=== PATIENT | female | born 1955 | race Caucasian/White ===

== ENCOUNTER 2022-10-05 10:02 | Emergency (ER) | payer MEDICARE, SELFPAY ==
--- NOTE | ~2022-10-05 | US_ITS ---
EXAMINATION: US venous doppler [facility] DATE: 10/05/2022 10:59 INDICATION: Left lower limb swelling and pain TECHNIQUE: Sun scale images without and with compression and Doppler images of the left lower extrem ity veins were obtained. COMPARISON: None FINDINGS: The left common femoral vein and profunda femoral vein are patent. There is thrombosis of t he femoral vein, popliteal vein, peroneal trunk, posterior tibial veins, and gastrocnemius vein. IMPRESSION: 1. Thrombosis of the left femoral vein, popliteal vein, peroneal trunk, posterior tibial veins, and g astrocnemius vein. These findings were discussed with Audrey Martin PA-C in the Emergency Department at 1102 hours on 10/05/2022. Reviewed, dictated and finalized at location L. IMPRESSION: 1. Thrombosis of the left femoral vein, popliteal vein, peroneal trunk, posteri or tibial veins, and gastrocnemius vein. These findings were discussed with Audrey Martin PA-C in the Emergency Depar tme at 1102 hours on 10/05/2022.
[2022-10-05 10:15] VITALS: BP 141/68; PULSE 61; RESP 17; TEMP 36.6; O2SAT 96
--- NOTE | 2022-10-05 10:35 | PC.NURSE ---
Pt to U/S via w/c at this time.
[2022-10-05 11:54] LABS: Basophils Absolute Auto 0.1 K/mm3 (0.0-0.1); Basophils Percent Auto 0.7 % (0.2-1.2); Eosinophils Absolute Auto 0.4 K/mm3 (0-0.3); Eosinophils Percent Auto 4.3 % (0-4.4); Hematocrit 40.6 % (37.0-47.0); Hemoglobin 13.8 g/dL (12.0-15.0); Immature Granulocyte Absolute 0.05 K/mm3 (0.00-0.031); Immature Granulocyte Percent A 0.6 % (0-0.5); Lymphocytes Absolute Auto 1.66 K/mm3 (0.9-3.2); Lymphocytes Percent Auto 19.4 % (18.3-44.2); Mean Corpuscular Hemoglobin 31.2 pg (26-34); Mean Corpuscular Volume 91.9 fl (80-100); Mean Platelet Volume 9.9 fl (7.4-10.4); Monocytes Absolute Auto 0.8 K/mm3 (0.1-0.6); Monocytes Percent Auto 9.2 % (2.6-8.5); Neutrophils Absolute Auto 5.6 K/mm3 (1.3-6.7); Neutrophils Percent Auto 65.8 % (45.5-73.1); Platelet Count Result 218 k/mm3 (150-375); Red Blood Count 4.42 M/mm3 (4.2-5.4); Red Cell Distribution Width 13.4 % (11.5-14.5); White Blood Count 8.6 K/mm3 (4.5-10.0)
[2022-10-05 12:10] LABS: Anion Gap 5 mmol/L (8-16); Blood Urea Nitrogen 22 mg/dL (7-17); Calcium 8.9 mg/dL (8.4-10.2); Carbon Dioxide 24 mmol/L (22-30); Chloride 110 mmol/L (98-107); Estimated CRCL calculation 59 ml/min; Estimated Glomerular Filt Rate > 60; Glucose 124 mg/dL (65-110); Potassium 3.8 mmol/L (3.4-5.0); Sodium 139 mmol/L (137-145)
--- NOTE | 2022-10-05 12:17 | ED.LOWEXIN ---
HPI - Extremity Injury (Lower) General Chief Complaint: Extremity Injury, Lower Stated Complaint: left leg swelling Time Seen by Provider: 10/05/22 11:05 Source: patient Mode of arrival: ambulatory Limitations: no limitations History of Present Illness HPI Narrative: This is a 67 year old female that presents to the ER for left calf pain and swelling noted over the last 2 days. No recent injuries or trauma. No recent surgeries. She was evaluated by her primary for this today and prompted to be seen in the ER for an ultrasound of her leg. Denies chest pain, shortness of breath, erythema, or numbness. Related Data Allergies Allergy/AdvReac Type Severity Reaction Status Date / Time Sulfa (Sulfonamide Allergy Hives Verified 10/05/22 11:19 Antibiotics) [facility] Past Medical History Medical History (Updated 10/05/22 @ 13:24 by Audrey Martin PA-C) History of hypertension Social History Social History (Updated 10/05/22 @ 13:24 by Audrey Martin PA-C) Smoking status: Never smoker Exam Narrative: GENERAL: Well-appearing, well-nourished, and in no acute distress. HEAD: Normocephalic, atraumatic. EYES: EOMI. CHEST: Clear to auscultation. No respiratory distress. No wheezes rales or rhonchi HEART: Regular rate and rhythm. No murmur heard. Normal peripheral pulses. EXTREMITIES: Normal range of motion. 1+ pitting edema to the left leg from below the knee into the ankle. Normal DP pulse. Normal sensation. No redness or warmth SKIN: Warm, dry, no rash. NEURO: No focal deficits. Alert and oriented x3. PSYCH: Normal mood and affect Course Course Emergency Course: Patient and family updated on work-up and agree with plan of care Consultations Consultation #1: Spoke with SAM Hickey, patient's primary provider about work-up. Agrees with plan of care. Will follow-up in clinic next week Date: 10/05/22 Vital Signs Vital signs: Vital Signs Temperature 97.8 F 10/05/22 10:15 Pulse Rate 61 10/05/22 10:15 Respiratory Rate 17 10/05/22 10:15 Blood Pressure 141/68 H 10/05/22 10:15 Pulse Oximetry 96 10/05/22 10:15 Oxygen Delivery Room Air 10/05/22 10:15 Temperature 97.8 F 10/05/22 10:15 Pulse Rate 61 10/05/22 10:15 Respiratory Rate 17 10/05/22 10:15 Blood Pressure 141/68 H 10/05/22 10:15 Pulse Oximetry 96 10/05/22 10:15 Oxygen Delivery Room Air 10/05/22 10:15 MDM - Extremity Injury (Lower) MDM Narrative Medical decision making narrative: Patient presents to the emergency department for left calf pain and swelling noted over the last 2 days. She is afebrile and nontoxic-appearing. Her heart rate and oxygen saturation are normal. She denies any chest pain or shortness of breath. She is neurovascularly intact. CBC and metabolic panel without concerning findings. Left lower extremity venous Doppler shows thrombosis of the left femoral vein, popliteal vein, peroneal trunk, posterior tibial vein, gastrocnemius vein. Patient was updated on work-up. Will be started on oral anticoagulation. Spoke with patient's primary about workup who agrees with plan and will follow up in clinic. She was given warnings to return to the ER Differential Diagnosis Differential diagnosis: Likely other (DVT, cellulitis) Lab Data Attestation: I reviewed the patient's lab results. 10/05/22 11:46 10/05/22 11:46 Labs: Lab Results 10/05/22 Range/Units 11:46 WBC 8.6 (4.5-10.0) K/mm3 RBC 4.42 (4.2-5.4) M/mm3 Hgb 13.8 (12.0-15.0) g/dL Hct 40.6 (37.0-47.0) % MCV 91.9 (80-100) fl MCH 31.2 (26-34) pg MCHC 34.0 (32-36) g/dl RDW 13.4 (11.5-14.5) % Plt Count 218 (150-375) k/mm3 MPV 9.9 (7.4-10.4) fl Immature Gran % (Auto) 0.6 H (0-0.5) % Neut % (Auto) 65.8 (45.5-73.1) % Lymph % (Auto) 19.4 (18.3-44.2) % Ross % (Auto) 9.2 H (2.6-8.5) % Eos % (Auto) 4.3 (0-4.4) % Baso % (Auto) 0.7 (0.2-1.2) % Lymph # (Auto) 1.66 (0.9-3.
== END 2022-10-05 12:33 | disposition home or self-care (01) ==
PROVIDERS: Emergency Provider Physician Assistant
DX: I82.402 Acute embolism and thrombosis of unspecified deep veins of left lower extremity (principal); I10 Essential (primary) hypertension
CPT/HCPCS: 36415; 80048; 85025; 93971; 99284

== ENCOUNTER 2023-01-24 15:09 | Outpatient (CLI) | payer MEDICARE, SELFPAY ==
--- NOTE | ~2023-01-24 | US_ITS ---
EXAMINATION:US venous doppler LE LT INDICATION:Deep venous thrombosis TECHNIQUE: Multiple grayscale, color flow and Doppler images of the left lower extremity deep venous systems were obtained and reviewed. COMPARISON:10/05/2022 FINDINGS: The left femoral and popliteal veins contain chronic partially occlusive deep venous thromb osis. Color flow is also seen within the posterior tibial, peroneal, greater saphenous and profunda v eins. IMPRESSION: 1: Chronic partially occlusive deep venous thrombosis of the left femoral and popliteal veins. Reviewed, dictated and finalized at location B. IMPRESSION: 1: Chronic partially occlusive deep venous thrombosis of the left femoral and p opliteal veins.
== END 2023-01-24 15:10 | disposition home or self-care (01) ==
LOC: ANHIMG 15:14
PROVIDERS: PCP Physician Assistant; Visit Provider Physician Assistant
DX: I82.512 Chronic embolism and thrombosis of left femoral vein (principal); I82.532 Chronic embolism and thrombosis of left popliteal vein
CPT/HCPCS: 93971

== ENCOUNTER → 2023-05-23 13:20 | Outpatient (CLI) | payer MEDICARE, SELFPAY ==
--- NOTE | ~2023-05-23 | MR_ITS ---
EXAMINATION: MR lumbar spine wo con DATE: 05/23/2023 14:55 INDICATION: Low back pain, unspecified. TECHNIQUE: Magnetic resonance imaging (MRI) of the lumbar spine was performed without intravenous con trast. Sequences included sagittal T2-weighted FSE, sagittal T2-weighted FS FSE, sagittal T1-weighted FSE, and axial T2-weighted FSE. COMPARISON: None FINDINGS: There is 4 degrees levocurvature of lumbar spine. There is 3 mm anterolisthesis of L3 on L4 and L4 on L5. There are changes of posterior fusion procedure from L3 to L5 with pedicle screws. The re are changes of anterior fusion procedure at L3-L4 and L4-L5 with interbody devices. There is mild chronic height loss of T10 vertebral body. There is severely decreased disc height at L2-L3 and mildl y decreased disc height at L5-S1. The distal spinal cord signal intensity is normal. The conus medull rusty is at L1. The following disc levels are specifically discussed: L1-L2: There is a central protrusion. There is moderate right and severe left facet joint osteoarthri tis. There is mild bilateral neural foraminal stenosis. There is mild central canal stenosis. L2-L3: The disc is bulging. There is severe bilateral facet joint osteoarthritis. There is moderate b ilateral neural foraminal stenosis. There is moderate central canal stenosis. L3-L4: There is ankylosis of the facet joints with severe right and moderate left hypertrophy. There is mild bilateral neural foraminal stenosis. There is mild central canal stenosis. L4-L5: There is severe bilateral facet joint osteoarthritis. There is moderate right and mild left ne ural foraminal stenosis. There is mild central canal stenosis. There is severe stenosis of right late ral recess. L5-S1: The disc is bulging and has an annular fissure. There is moderate right and severe left facet joint osteoarthritis. There is moderate bilateral neural foraminal stenosis. There is moderate centra l canal stenosis. There is severe stenosis of left lateral recess. IMPRESSION: 1. Severe lumbar spondylosis. 2. Anterior and posterior fusion procedures from L3 to L5. Reviewed, dictated and finalized at location A. ING IN MACHINE TENDER
--- NOTE | ~2023-05-23 | MR_ITS ---
EXAMINATION: MR cervical spine wo con DATE: 05/23/2023 14:46 INDICATION: Tingling in the arms and hands. Spinal stenosis. Bilateral leg tingling. TECHNIQUE: Magnetic resonance imaging (MRI) of the cervical spine was performed without intravenous c ontrast. COMPARISON: None FINDINGS: There is 6 degrees cervicothoracic spine. Vertebral body heights are normal. There is mildl y decreased disc height at C6-C7. The spinal cord signal intensity is normal. The following disc leve ls are specifically discussed: C2-C3: The disc does not extend beyond the endplate margin. There is no uncovertebral joint osteoarth ritis. There is mild bilateral facet joint osteoarthritis. There is no neural foraminal stenosis. The re is no central canal stenosis. C3-C4: There is a central protrusion. There is no uncovertebral joint osteoarthritis. There is modera te bilateral facet joint osteoarthritis. There is mild right neural foraminal stenosis. There is mild central canal stenosis. C4-C5: The disc is bulging. There is no uncovertebral joint osteoarthritis. There is severe right and mild left facet joint osteoarthritis. There is mild right neural foraminal stenosis. There is no jagruti tral canal stenosis. C5-C6: The disc does not extend beyond the endplate margin. There is mild left uncovertebral joint os teoarthritis. There is moderate right and mild left facet joint osteoarthritis. There is mild bilater al neural foraminal stenosis. There is no central canal stenosis. C6-C7: The disc is bulging. There is moderate bilateral uncovertebral joint osteoarthritis. There is moderate right and mild left facet joint osteoarthritis. There is moderate bilateral neural foraminal stenosis. There is moderate central canal stenosis with ventral and dorsal indentation of the spinal cord. C7-T1: There is a central extrusion. There is no uncovertebral joint osteoarthritis. There is severe bilateral facet joint osteoarthritis. There is mild right neural foraminal stenosis. There is mild ce ntral canal stenosis. IMPRESSION: 1. Moderate cervical spondylosis. Reviewed, dictated and finalized at location A. DIPPER
== END ==
PROVIDERS: PCP Physician Assistant; Visit Provider Neurological Surgery
DX: M48.062 Spinal stenosis, lumbar region with neurogenic claudication (principal); M47.892 Other spondylosis, cervical region; M47.896 Other spondylosis, lumbar region; Z98.1 Arthrodesis status
CPT/HCPCS: 72141; 72148

== ENCOUNTER 2023-10-20 23:27 | Emergency (ER) | payer MEDICARE, SELFPAY ==
--- NOTE | ~2023-10-20 | XR_ITS ---
EXAMINATION: XR chest 1V portable DATE: 10/21/2023 00:18 INDICATION: Weakness. TECHNIQUE: A single frontal view of the chest was obtained. COMPARISON: None. FINDINGS: There is no pneumonia, pleural effusion, or pneumothorax. The heart size is normal. There i s a large hiatal hernia. IMPRESSION: 1. Large hiatal hernia. Reviewed, dictated and finalized at location E. IMPRESSION: 1. Large hiatal hernia.
[2023-10-20 23:33] VITALS: BP 174/80; PULSE 61; RESP 20; TEMP 36.9; O2SAT 99
--- NOTE | 2023-10-20 23:40 | ECG_ITS ---
Test Date: 2023-10-20 23:42:28 Measurements Intervals [place] Rate: 64 P: 9 NC: 159 QRS: -3 QRSD: 90 T: -3 QT: 380 QTc: 393 Interpretive Statements SINUS RHYTHM INFERIOR MYOCARDIAL INFARCTION , PROBABLY OLD BASELINE ARTIFACT- I, II, III, AVR, AVL, AVF, V2 ABNORMAL ECG No previous ECG available for comparison Electronically Signed On 10-21-2023 07:52:40 CDT by Bj Welsh D.O.
--- NOTE | 2023-10-20 23:58 | ED.WEAKNESS ---
HPI - Weakness General Chief complaint: Back Pain/Injury Stated complaint: dehydration, back pain, Left leg pain Time Seen by Provider: 10/20/23 23:47 Source: patient Mode of arrival: ambulatory Limitations: no limitations History of Present Illness HPI Narrative: Patient presents with complaint of back pain and left leg pain. She had surgery with Dr Russell at [facility] recently and has been having weakness and fatigue as well as generalized body aches. She states that her skin feels rubbery. Applying ice helps. She is Jasper 5 mg tablets but not on a prescribed a stool softener though she was while she was in the hospital. Her last bowel movement was Sunday she is feeling bloated/constipated although still passing flatus.. Related Data Home Medications Medication Instructions Recorded Confirmed atenolol 50 mg tablet 50 mg PO DAILY 01/15/23 furosemide 20 mg tablet 20 mg PO QAM 01/15/23 ibuprofen 200 mg capsule 200 mg PO Q6H PRN 01/15/23 omega-3 fatty acids 1,250 mg 1,250 mg PO DAILY 01/15/23 capsule potassium chloride 10 mEq oral 10 meq PO DAILY 01/15/23 packet aspirin 81 mg tablet,delayed 81 mg PO DAILY 05/08/23 release (Adult Low Dose Aspirin) verapamil 120 mg tablet 120 mg PO TID 05/08/23 Allergies Allergy/AdvReac Type Severity Reaction Status Date / Time Sulfa (Sulfonamide Allergy Hives Verified 07/03/23 15:25 Antibiotics) [facility] Past Medical History Medical History (Updated 10/22/23 @ 00:00 by Vangie Howe) History of hypertension Surgical History Surgical History History of right knee joint replacement 2020 S/P lumbar fusion Social History Social History Smoking status: Never smoker Alcohol intake: current Substance use: never Substance use type: does not use Do You Feel Safe in your Home?: Yes Lack of Transportation: No Lack of Food: Never True Current Housing: I Have Housing Concerned About Future Housing: No Difficulty Paying Gas/Electric Bills: No Difficulty Paying for Meds: No Currently Unemployed: No Education: High School Diploma/GED Difficulty w/ Childcare or Family Care: No Living arrangements: with family Occupation/Education: retired Exam Narrative: GENERAL: Well-appearing, well-nourished, and in no acute distress. HEAD: Normocephalic, atraumatic. EYES: Non injected, non icteric ENT: Nares clear, no rhinorrhea or epistaxis. NECK: Supple. CHEST: Speaking in full sentences. No respiratory distress. HEART: Regular rate and rhythm. Lower extremities are warm and well perfused. ABDOMEN/GI: Soft, nondistended. Rectal exam performed with Eunice rivera and RN present. Patient has nonthrombosed external hemorrhoids without active bleeding. Normal rectal tone. Guiac/FOBT negative. BACK/EXTREMITIES: No bilateral lower extremity edema. Well-healing surgical scar/incision site which is without evangelina at this time. No overlying skin changes such as cellulitis and without induration or purulent discharge. Patient is able to demonstrate flexion extension as well as [id number] movement. SKIN: Warm, dry, no rash. NEURO: No focal deficits. Alert and oriented x3. Sensation intact to gross touch in extremities. Observed ambulating a few steps with steady gait at bedside. 5/5 strength with hip flexion, abduction adduction as well as bilateral knee flexion extension bilateral ankle dorsiflexion plantar flexion. PSYCH: Normal mood and affect. Course Vital Signs Vital signs: Vital Signs Temperature 98.4 F 10/20/23 23:33 Pulse Rate 61 10/20/23 23:33 Respiratory Rate 20 10/20/23 23:33 Blood Pressure 174/80 H 10/20/23 23:33 Pulse Oximetry 99 10/20/23 23:33 Oxygen Delivery Room Air 10/20/23 23:33 Temperature 98.4 F 10/20/23 23:33 Pulse Rate 65 10/21/23 03:54 Respiratory R
[2023-10-21 00:06] LABS: Basophils Percent Auto 0.2 % (0.2-1.2); Eosinophils Absolute Auto 0.4 K/mm3 (0-0.3); Eosinophils Percent Auto 3.9 % (0-4.4); Hematocrit 27.9 % (37.0-47.0); Hemoglobin 9.4 g/dL (12.0-15.0); Immature Granulocyte Absolute 0.17 K/mm3 (0.00-0.031); Immature Granulocyte Percent A 1.9 % (0-0.5); Lymphocytes Absolute Auto 2.01 K/mm3 (0.9-3.2); Lymphocytes Percent Auto 22.1 % (18.3-44.2); Mean Corpuscular HGB Conc 33.7 g/dl (32-36); Mean Corpuscular Hemoglobin 31.6 pg (26-34); Mean Corpuscular Volume 93.9 fl (80-100); Mean Platelet Volume 10.1 fl (7.4-10.4); Monocytes Absolute Auto 0.9 K/mm3 (0.1-0.6); Neutrophils Absolute Auto 5.6 K/mm3 (1.3-6.7); Neutrophils Percent Auto 61.9 % (45.5-73.1); Nucleated Red Blood Cells Perc 0.2 % (0.0-0.2); Platelet Count Result 245 k/mm3 (150-375); Red Blood Count 2.97 M/mm3 (4.2-5.4); Red Cell Distribution Width 14.1 % (11.5-14.5); White Blood Count 9.1 K/mm3 (4.5-10.0)
[2023-10-21 00:13] LABS: Alanine Aminotransferase 33 U/L (6-35); Albumin Level 3.6 g/dL (3.5-5.1); Alkaline Phosphatase 98 U/L (38-126); Anion Gap 8 mmol/L (4-12); Aspartate Amino Transferase 30 U/L (14-36); Bilirubin,Total 0.5 mg/dL (0.2-1.3); Blood Urea Nitrogen 25 mg/dL (7-17); Calcium 8.7 mg/dL (8.4-10.2); Carbon Dioxide 26 mmol/L (22-30); Chloride 104 mmol/L (98-107); Estimated CRCL calculation 51 ml/min; Estimated Glomerular Filt Rate 55; Glucose 112 mg/dL (65-110); Potassium 3.4 mmol/L (3.4-5.0); Sodium 138 mmol/L (137-145)
[2023-10-21] MEDS: HYDROcodone/acetaminophen (*CRX) 10-325 MG TABLET 1 TAB PO (00:31)
[2023-10-21 00:42] LABS: Creatine Kinase 109 U/L (30-135); Magnesium 1.9 mg/dL (1.6-2.3)
[2023-10-21] MEDS: polyethylene glycoL 3350 17 GM POWD.PACK PO (00:54)
[2023-10-21 01:12] LABS: Appearance Urine Clear (Clear); Bilirubin Urine Negative (Negative); Blood Urine Negative (Negative); Color Urine Yellow (Yellow); Glucose Urine UA Negative (Negative); Ketones Urine Negative (Negative); Leukocyte Esterase Ur Negative LEU/UL (Negative); Nitrate Urine Negative (Negative); Protein Urine Negative (Negative); Specific Grav Ur 1.018 (1.001-1.035); pH Urine 5.5 (5.0-9.0)
[2023-10-21 01:15] LABS: Add Urine Microscopic? NO
[2023-10-21 01:16] LABS: Influenza A QL RT-PCR Negative (Negative); Influenza B QL RT-PCR Negative (Negative); RSV RNA, RT-PCR Negative (Negative); SARS-CoV-2 RNA PCR Negative (Negative)
[2023-10-21 01:22] LABS: NT Pro B Type Natriuretic Pept 1020 pg/mL (19.9-100)
[2023-10-21] MEDS: SENNOSIDES 8.6 MG TABLET PO (03:46)
[2023-10-21 03:54] VITALS: BP 166/98; PULSE 65; RESP 17; O2SAT 100
== END 2023-10-21 03:55 | disposition home or self-care (01) ==
PROVIDERS: Emergency Provider Student in an Organized Health Care Education/Training Program
DX: G89.18 Other acute postprocedural pain (principal); M54.32 Sciatica, left side; D64.9 Anemia, unspecified; K59.00 Constipation, unspecified; Z20.822 Contact with and (suspected) exposure to COVID-19; I10 Essential (primary) hypertension; Z98.1 Arthrodesis status; Z96.651 Presence of right artificial knee joint; Z79.82 Long term (current) use of aspirin; Z79.899 Other long term (current) drug therapy; Z79.891 Long term (current) use of opiate analgesic
CPT/HCPCS: 36415; 71045; 80053; 81003; 82550; 83735; 83880; 85025; 87637; 93005; 99283; A9270

== ENCOUNTER 2023-11-01 12:51 | Outpatient (CLI) | payer MEDICARE, SELFPAY ==
--- NOTE | ~2023-11-01 | CT_ITS ---
EXAMINATION: CT lumbar spine wo con DATE: 11/01/2023 13:16 INDICATION: Low back pain. Left leg pain. TECHNIQUE: Computed tomography (CT) of the lumbar spine was performed without intravenous contrast. A utomated exposure control and iterative reconstruction technique were employed. The dose-length produ ct was 982.10 mGy-cm. COMPARISON: Lumbar spine MRI 05/23/2023 FINDINGS: There is 3 mm anterolisthesis of L3 on L4 and L4 on L5. There is mild chronic anterior wedg ing of T12 vertebral body. There are changes of anterior fusion procedures from L2-L3 through L5-S1 w ith interbody devices. There are changes of posterior fusion procedure from L2 to S1 and the iliac shahrzad james. The pedicle screw on the right at L5 has been removed. There are laminectomies at L2 and L5. The re is mildly decreased disc height at T11-T12. The following disc levels are specifically discussed: L1-L2: The disc is bulging. There is severe lateral facet joint osteoarthritis. There is mild bilater al neural foraminal stenosis. There is mild central canal stenosis. L2-L3: There is no facet joint hypertrophy. There is mild bilateral neural foraminal stenosis. There is no central canal stenosis. L3-L4: There is mild bilateral facet joint hypertrophy. There is mild right neural foraminal stenosis . There is mild central canal stenosis. L4-L5: There is moderate bilateral facet joint hypertrophy. There is mild bilateral neural foraminal stenosis. There is mild central canal stenosis. L5-S1: There is mild left facet joint hypertrophy. There is mild left neural foraminal stenosis. Ther e is no central canal stenosis. IMPRESSION: 1. Anterior fusion procedures from L2 to S1. Posterior fusion procedure from L2 to the sacrum and heidy ac bones. 2. Mild lumbar spondylosis. Reviewed, dictated and finalized at location A. IMPRESSION: 1. Anterior fusion procedures from L2 to S1. Posterior fusion procedure from L2 to the sacrum and iliac bones. 2. Mild lumbar spondylosis.
--- NOTE | ~2023-11-01 | XR_ITS ---
Lumbosacral Spine: AP and lateral views Clinical History: Pain Findings: The normal lordotic curve is maintained. There is posterior and interbody fusion extending from L2 through the sacrum. No acute fracture seen. There is underlying 6 mm anterolisthesis of L3 ov er L4. Probable 3-4 mm anterolisthesis of L4 over L5. The sacroiliac joints are normally outlined. Impression: Posterior and interbody fusion from L2 through the sacrum. 6 mm underlying anterolisthesis of L3 over L4. Probable 3-4 mm underlying anterolisthesis of L4 over L5. Reviewed, dictated and finalized at location . Impression: Posterior and interbody fusion from L2 through the sacrum. 6 mm underlying anterolisthesis of L3 over L4. Probable 3-4 mm underlying anterolisthesis of L4 over L5.
== END 2023-11-01 12:52 | disposition home or self-care (01) ==
PROVIDERS: PCP Physician Assistant; Visit Provider Neurological Surgery
DX: M48.062 Spinal stenosis, lumbar region with neurogenic claudication (principal); M48.07 Spinal stenosis, lumbosacral region; M47.816 Spondylosis without myelopathy or radiculopathy, lumbar region; Z98.1 Arthrodesis status
CPT/HCPCS: 72100; 72131

== ENCOUNTER 2024-02-25 12:58 | Outpatient (CLI) | payer MEDICARE, SELFPAY ==
[2024-02-25 13:58] LABS: Hematocrit 38.5 % (37.0-47.0); Hemoglobin 12.1 g/dL (12.0-15.0); Mean Corpuscular HGB Conc 31.4 g/dl (32-36); Mean Corpuscular Hemoglobin 26.2 pg (26-34); Mean Corpuscular Volume 83.5 fl (80-100); Mean Platelet Volume 9.6 fl (7.4-10.4); Platelet Count Result 315 k/mm3 (150-375); Red Blood Count 4.61 M/mm3 (4.2-5.4); Red Cell Distribution Width 15.5 % (11.5-14.5); White Blood Count 7.2 K/mm3 (4.5-10.0)
[2024-02-25 14:04] LABS: Add Urine Microscopic? NO; Appearance Urine Clear (Clear); Bilirubin Urine Negative (Negative); Blood Urine Negative (Negative); Color Urine Yellow (Yellow); Glucose Urine UA Negative (Negative); Ketones Urine Negative (Negative); Leukocyte Esterase Ur Negative LEU/UL (Negative); Nitrate Urine Negative (Negative); Protein Urine Negative (Negative); Specific Grav Ur 1.022 (1.001-1.035); Urobilinogen Urine 0.2 mg/dL (<2.0)
[2024-02-25 14:18] LABS: Anion Gap 7 mmol/L (4-12); Blood Urea Nitrogen 23 mg/dL (7-17); Carbon Dioxide 24 mmol/L (22-30); Chloride 110 mmol/L (98-107); Estimated Glomerular Filt Rate 49; Glucose 109 mg/dL (65-110); Potassium 3.7 mmol/L (3.4-5.0); Sodium 141 mmol/L (137-145)
[2024-02-25 14:35] LABS: INR 1.1; Prothrombin Time 14.3 Seconds (11.1-14.7)
== END 2024-02-25 12:59 | disposition home or self-care (01) ==
LOC: ANHSURGERY 13:02
PROVIDERS: PCP Nurse Practitioner Adult Health; Visit Provider Neurological Surgery
DX: Z01.818 Encounter for other preprocedural examination (principal); D68.9 Coagulation defect, unspecified; M50.20 Other cervical disc displacement, unspecified cervical region
CPT/HCPCS: 36415; 80048; 81003; 85027; 85610; 85730; 86850; 86900; 86901

== ENCOUNTER 2024-02-28 11:00 | Outpatient (CLI) | payer MEDICARE, SELFPAY ==
--- NOTE | ~2024-02-28 | US_ITS ---
EXAMINATION:US venous doppler LE LT INDICATION:History of DVT. Patient on blood thinners. Edema. TECHNIQUE: Multiple grayscale, color flow and Doppler images of the left lower extremity deep venous systems were obtained and reviewed. COMPARISON:Ultrasound dated 01/24/2023 FINDINGS: The common femoral, superficial femoral and popliteal veins demonstrate normal respiratory variation, augmentation and compressibility. Color flow is also seen within the posterior tibial, pe roneal, greater saphenous and profunda veins. IMPRESSION: 1: No lower extremity deep venous thrombosis. Reviewed, dictated and finalized at location B. OGRAPHIC SPECIALIST
== END 2024-02-28 11:01 | disposition home or self-care (01) ==
PROVIDERS: PCP Nurse Practitioner Adult Health; Visit Provider Internal Medicine Cardiovascular Disease
DX: R60.0 Localized edema (principal)
CPT/HCPCS: 93971

== ENCOUNTER 2024-02-29 14:42 | Outpatient (CLI) | payer MEDICARE, SELFPAY ==
--- NOTE | 2024-02-29 15:05 | ECHO_ITS ---
Patient Info Name: Kala Duron Age: 68 years : 1955 Gender: Female Ht: 64 in Wt: 212 lbs BSA: 2.13 m2 HR: 66 bpm BP: 132 / 74 mmHg Technical Quality: Good Exam Date: 02/29/2024 3:13 PM Exam Location: Echo Lab Patient Status: Outpatient Admit Date: 02/29/2024 Staff Ordering Physician: Bj Welsh DO Attending Provider: Bj Welsh DO Referring Physician: Blaise SOSA; Exam Type: CA echo doppler color flow Study Info Complete two-dimensional, color flow and Doppler transthoracic echocardiogram is performed. Summary 1. Complete two-dimensional, color flow and Doppler transthoracic echocardiogram is performed. 2. Left ventricular chamber dimension is moderately enlarged. 3. Left ventricular systolic function is normal, estimated at 60-65%. 4. Ventricular septum is sigmoid shaped. No resting LVOT obstruction. 5. The left ventricular diastolic function is grade I diastolic dysfunction. 6. E/e' 15 is elevated. 7. Left atrial chamber dimension is mildly enlarged. 8. There is trace aortic valve regurgitation. 9. There is mild mitral valve regurgitation. 10. There is trace tricuspid valve regurgitation. 11. No pulmonary hypertension, estimated pulmonary arterial systolic pressure is 29 mmHg. 12. There is trace pulmonic regurgitation. Left Ventricle Ventricular septum is sigmoid shaped. No resting LVOT obstruction. Left ventricular chamber dimension is moderately enlarged. Left ventricular systolic function is normal, estimated at 60-65%. The left ventricular diastolic function is grade I diastolic dysfunction. E/e' 15 is elevated. Right Ventricle Right ventricular systolic function is normal and with normal TAPSE 2.5 cm. Right ventricular chamber dimension is normal. Left Atria Left atrial chamber dimension is mildly enlarged. Right Atria Right atrial chamber dimension is normal. Aortic Valve The aortic valve is trileaflet. There is no aortic valve stenosis. There is trace aortic valve regurgitation. Pulmonic Valve There is trace pulmonic regurgitation. Mitral Valve There is no mitral valve stenosis. There is mild mitral valve regurgitation. Tricuspid Valve There is trace tricuspid valve regurgitation. No pulmonary hypertension, estimated pulmonary arterial systolic pressure is 29 mmHg. Pericardium/Pleural There is no pericardial effusion. Inferior Vena Cava Normal inferior vena cava with >50% collapse upon inspiration consistent with normal right atrial pressure, 5 mmHg. Aorta The aortic root size at the sinus of Valsalva is normal. Left Ventricular Outflow Tract Name Value Normal LVOT 2D LVOT Diameter 2.0 cm LVOT Doppler LVOT Peak Gradient 4 mmHg LVOT Mean Gradient 2 mmHg LVOT VTI 26 cm LVOT VTI/AV VTI Ratio 0.6 LVOT Stroke Volume 80 ml LVOT CO 11.4 l/min LVOT CI 5.4 l/min/m2 Pulmonic Valve Name Value Normal PV Doppler PV Peak Gradient 2 mmHg PV Regurgitation Doppler WA Peak End Diastolic Velocity 77 cm/s Mitral Valve Name Value Normal MV Doppler MV Decel [place] 358 cm/s2 MV PHT 68 ms MV Area (PHT) 3.2 cm2 4.0-5.0 MV Regurgitation Doppler MR Peak Gradient 124 mmHg MV Diastolic Function MV E Peak Velocity 84 cm/s MV A Peak Velocity 96 cm/s MV E/A 0.9 MV Decel Time 234 ms MV Annular TDI MV E/e' (Septal) 16.9 <=8.0 MV E/e' (Lateral) 14.5 <=8.0 MV E/e' (Average) 15.7 Tricuspid Valve Name Value Normal TV Regurgitation Doppler TR Peak Velocity 242 cm/s TR Peak Gradient 24 mmHg Estimated PAP/RSVP RA Pressure 5 mmHg <=5 PA Systolic Pressure 29 mmHg <36 RV Systolic Pressure 29 mmHg <36 Aorta Name Value Normal Ascending Aorta Ao Root Diameter (MM) 2.8 cm Ao Root Diam Index (MM) 1.3 cm/m2 Aortic Valve Name Value Normal AV Doppler AV Peak Velocity 164 cm/s AV Peak Gradient 11 mmHg AV Mean Gradient 5 mmHg AV VTI 42 cm AV Area (Cont Eq VTI) 1.9 cm2 >=3.0 AV Area (Cont Eq Adis) 1.8 cm2 AV Regurgitation 2D LVOT Area 3.0 cm2 AV Regurgitation Doppler AR Decel Time 1,224 ms AR Decel [place] 280 cm/s2 AR PHT 355 ms Ventricles Name Value Normal LV Dimensions 2D/MM IVS Diastolic Thickness (2D) 0.7 cm 0.6-1.0 LVID Diastole (2D) 5.8 cm 3.8-5.2 LVIW Diastolic Thickness (2D) 0.8 cm 0.6-0.9 LVID Systole (2D) 3.9 cm 2.2-3.5 LVOT Diameter 2.0 cm LV Mass (2D Cubed) 168.46 g 67.00-162.00 LV Mass Index (2D Cubed) 79 g/m2 43-95 Relative Wall Thickness (2D) 0.28 LV Fractional Shortening/Ejection Fraction 2D/MM LV Fractional Shortening (2D) 33 % 27-45 LV EF (2D Teicholz) 61 % 54-74 LV Diastolic Volume (4C MOD) 155 ml LV EF (4C MOD) 65 % LV Diastolic Volume (2C MOD) 141 ml LV EF (2C MOD) 61 % LV Diastolic Volume (BP MOD) 149 ml 46-106 LV Diastolic Volume Index (BP MOD) 70 ml/m2 29-61 LV Systolic Volume (BP MOD) 55 ml 14-42 LV Systolic Volume Index (BP MOD) 26 ml/m2 8-24 LV EF (BP MOD) 63 % 54-74 LV Diastolic Length (4C) 8.4 cm LV Systolic Length (4C) 6.8 cm LV Stroke Volume (4C MOD) 100 ml Atria Name Value Normal LA Dimensions LA Dimension (2D) 4.1 cm 2.7-3.8 LA Dimen Index (2D) 1.9 cm/m2 LA Dimension (MM) 4.7 cm 2.7-3.8 LA Volume (4C A-L) 83 ml LA Volume (BP A-L) 72 ml RA Dimensions RA Area (4C) 15.3 cm2 <=18.0 Report Signatures
== END 2024-02-29 14:43 | disposition home or self-care (01) ==
PROVIDERS: PCP Nurse Practitioner Adult Health; Visit Provider Internal Medicine Cardiovascular Disease
DX: R60.0 Localized edema (principal)
CPT/HCPCS: 93306

== ENCOUNTER 2024-03-04 00:36 | Day surgery (SDC) | payer MEDICARE, MEDICAID, SELFPAY ==
[2024-02-19 13:43] VITALS: BMI 36.7
--- NOTE | 2024-02-19 14:32 | PC.NURSE ---
Report to the Outpatient Waiting Room, entrance under the green pavilion located off [facility], at time ___10:00AM____ on date ___03/04/24____. Planned Procedure Time: __12:00PM .? Time changes happen often and if your time is changed the preop area will call you the afternoon before. - You and your visitor will be asked to self-screen and do not enter if you have any COVID symptoms. Please call surgeon if you need to reschedule. - A mask is optional within the hospital at this time. Patients may have clear liquids (water, carbonated beverages, clear teas, apple juice) until 3 hours prior to surgery with a maximum of 20 ounces. - No food from midnight until time of surgery and no smoking. This includes no chewing gum, candy or mints. Take only the following medications with a SIP of water on the morning of surgery: ____ATENOLOL, VERAPAMIL DO NOT STOP ANY OF YOUR OTHER PRESCRIPTION MEDICATIONS PRIOR TO SURGERY EXCEPT THE FOLLOWING Medications to discontinue per physician ___HOLD ASPIRIN, IBUPROFEN & VITAMINS/SUPPLEMENTS 7 DAYS PRE-OP PER DR CASTILLO (PER PATIENT) Date to take last dose 02/25/24 Please no make-up, nail welsh, hairspray, perfume, deodorant, or body powder the day of surgery.? No jewelry (including any body piercings) or valuables the day of surgery, leave them at home.? Please take a shower or bath the night before, or the morning of, surgery with an antibacterial soap.? Wear comfortable, loose fitting clothing.? - Jewelry must be removed prior to entering the operating room.? Rings and piercings that are not removed may be cut off. - The hospital will not accept responsibility for valuables.? - Please leave all valuables, including medications, at home the day of surgery. If you are going home after surgery, a licensed parcel post truck driver must drive you home.? - NO public transportation without another adult if you receive anesthesia. - We recommend that an adult stay with you for 24 hours following discharge. - We also recommend that you do not drive, make important decision, drink alcoholic beverages, or take any drugs that were not prescribed by your health care provider for at least 24 hours after your discharge time. Follow any additional instructions given to you from your surgeon. Telephone instructions given to ____PATIENT and asked if any additional questions and then verbalized understanding. Patient advised to call surgeon office or pre surgery nurse liaison [phone] if any additional questions.
[2024-03-04] VITALS (10 sets, daily range): BP systolic 125–167; BP diastolic 64–83; PULSE 51–59; RESP 13–151; TEMP 36.2–36.3; O2SAT 93–98
--- NOTE | ~2024-03-04 | XR_ITS ---
EXAMINATION: XR fluoroscopy no charge DATE: 03/04/2024 09:27 INDICATION: C6-C7 anterior cervical discectomy with fusion TECHNIQUE: 11 fluoroscopic images of the neck were obtained in lateral projection during procedure pe rformed by Dr. Delvalle. Radiologist was not present for the imaging or procedure. The amount of fluo roscopy time used during this procedure was 0.1 minutes. Total DAP was 0.252 Gycm^2 COMPARISON: None. FINDINGS: Images demonstrate tissue retractors at the anterior neck and a metallic probe extending deeper with the distal tip initially project over the anterior disc space at the C4-C5 level and subsequently rep ositioned to the anterior C6-C7 disc space which is poorly visualized due to underpenetration. An end otracheal tube is seen within expected position. Poorly visualized on the final images and anterior p late and screw fixation for anterior spinal fusion spanning the C6-C7 disc space. IMPRESSION: 1. Fluoroscopy utilized during reported C6-C7 discectomy and anterior spinal fusion with anterior torsten te and screw fixation. See procedure note for further detail. Reviewed, dictated and finalized at location A. NO FLOOR SUPERVISOR IMPRESSION: 1. Fluoroscopy utilized during reported C6-C7 discectomy and anterior spinal fu treva with anterior plate and screw fixation. See procedure note for further det ail.
[2024-03-04] MEDS: LACTATED RINGERS 1,000 ML 30 ML IV CONT ×2 (06:30→09:48)
--- NOTE | 2024-03-04 07:20 | P.PNAN_ITS ---
Anes - Initial Pre Proc Eval Procedure: Operation Date: 03/04/24 07:30 Proposed Procedures p C6-7, Anterior Cervical Discectomy with Fusion - Ac Delvalle MD Date/Time: 03/04/24 07:20 Surgeon: Ac Delvalle MD Pre Op Diagnosis: herniated nucleus pulposus, stenosis, Patient Data Age: 68 Gender: F Height: 1.63 m Weight: 97 kg Allergies Allergy/AdvReac Type Severity Reaction Status Date / Time [id number] Reductase Allergy rash, Verified 02/28/24 09:42 Inhibitor muscle pain Sulfa (Sulfonamide Allergy Hives Verified 02/28/24 09:42 Antibiotics) tolterodine (From Detrol) Allergy Chest Pain Verified 02/28/24 09:42 Home Medications ?Medication ?Instructions ?Recorded ?Confirmed ?Type atenolol 50 mg tablet 50 mg PO QAM 01/15/23 02/28/24 History ibuprofen 200 mg capsule 400 mg PO Q6H PRN Pain 01/15/23 02/28/24 History omega-3 fatty acids 1,250 mg 1,250 mg PO BID 01/15/23 02/28/24 History capsule aspirin 81 mg tablet,delayed 81 mg PO DAILY 05/08/23 02/28/24 History release (Adult Low Dose Aspirin) verapamil 120 mg tablet 120 mg PO DIRECTED 05/08/23 02/28/24 History sennosides 8.6 mg tablet 8.6 mg PO DAILY PRN constipation 10/21/23 02/28/24 Rx #7 tabs cholecalciferol (vitamin D3) 25 25 mcg PO DAILY 01/31/24 02/28/24 History mcg (1,000 unit) capsule (Vitamin D3) ropinirole 0.5 mg tablet 0.5 mg PO HS 02/19/24 02/28/24 History Patient hx anesthesia problems: none Family hx anesthesia problems: none Results Review: All pre-operative results and documents have been reviewed as part of the pre-operative evaluation. [facility] Past Medical History Medical History History of hypertension Surgical History Surgical History History of right knee joint replacement 2020 S/P lumbar fusion Social History Social History Smoking packs per day: 0.02 Smoking cigarettes per day: 0.4 Years smoked: 2 Smoking pack-years: 0.04 Smoking status: Former smoker Tobacco type: cigarettes Smoking end date: 09/23/85 Alcohol intake: current Drinks per week: 4 Substance use: never Substance use type: does not use Do You Feel Safe in your Home?: Yes Lack of Transportation: No Lack of Food: Never True Current Housing: I Have Housing Concerned About Future Housing: No Difficulty Paying Gas/Electric Bills: No Difficulty Paying for Meds: No Currently Unemployed: No Education: High School Diploma/GED Difficulty w/ Childcare or Family Care: No Living arrangements: with family Additional living arrangements comments: SUMEET Occupation/Education: retired Spiritual care concerns: No Anes - Eval Final PreProcedure Day of Procedure 03/04/24 07:20 Patient weight: obese Heart: regular rate and rhythm Lungs: clear to auscultation Airway: Mallampati scale class II Neurological: alert and oriented Last oral intake: >/= 8 hours ASA classification: III Emergent: no Anesthetic plan: proceed Anesthesia type and monitoring: general ETT and standard monitoring Results Review: All pre-operative results and documents have been reviewed as part of the pre- operative evaluation. HTN, b ignacio and CCB taken this am. Pt ambulates but limited by knee/back pain, no cp or sob. Informed Consent: The patient's anesthetic plan and its attendant risks and benefits were discussed with the patient/family/POA. Questions were solicited and answers provided to the satisfaction of the patient/family/POA.
--- NOTE | 2024-03-04 07:54 | PM.IMHP ---
H&P: HPI History of Present Illness Date/Time: 03/04/24 07:54 Chief Complaint: Neck and arm pain Narrative: Kala is here today in follow-up of her L2-3 and L5-S1 posterior lumbar interbody fusion with sacral screws. She is doing well from that standpoint and has no new symptoms but persists in having a progressive balance issues. She does not describe lightheadedness. She does not describe vertigo. The imbalance is with her at all times to the point that she uses a cane to make sure that she will not fall down. If she leans over the waist she has difficulty not falling over. This, as mentioned, has been progressive hand occurs every time she is walking. She does not have bowel or bladder difficulty and does not describe new specific muscle group weakness or dermatomal numbness. Her symptoms are severe and limiting for her. They do not have an inciting event. They have been progressive for some time. Review of Systems Review of Systems: All systems reviewed & are unremarkable except as noted in HPI and below Denies chills, Denies fever(s), Denies frequent falls, Denies weakness, Denies weight gain and Denies weight loss Eyes Denies change in vision and Denies diplopia ENT Denies disequilibrium Card Denies chest pain and Denies dyspnea Resp Denies cough and Denies dyspnea GI Denies abdominal pain, Denies change in bowel habits, Denies fecal incontinence and Denies vomiting Denies hematuria, Denies urinary frequency, Denies difficulty voiding, Denies dysuria, Denies urinary incontinence, Denies urinary hesitancy and Denies urinary urgency Musc Reports as per HPI, Reports abnormal gait, Reports back pain, Denies muscle weakness, Denies numbness, Reports radiating pain into limb and Denies tingling Skin/ Breast Reports system reviewed and no additional complaints, except as documented Neuro Reports as per HPI, Reports abnormal gait, Denies burning sensations, Denies frequent falls, Denies focal weakness, Denies numbness, Reports radicular pain, Denies tingling, Denies disequilibrium and Denies weakness Psych Reports no additional complaints, Denies depression and Denies hopelessness Endo Reports no additional complaints and Denies polyuria Endy/ Lymph Reports no additional complaints Aller/ Immun Reports no additional complaints PMFSH Past Medical History Medical History History of hypertension Surgical History Surgical History History of right knee joint replacement 2020 S/P lumbar fusion Social History Social History Smoking packs per day: 0.02 Smoking cigarettes per day: 0.4 Years smoked: 2 Smoking pack-years: 0.04 Smoking status: Former smoker Tobacco type: cigarettes Smoking end date: 09/23/85 Alcohol intake: current Drinks per week: 4 Substance use: never Substance use type: does not use Do You Feel Safe in your Home?: Yes Lack of Transportation: No Lack of Food: Never True Current Housing: I Have Housing Concerned About Future Housing: No Difficulty Paying Gas/Electric Bills: No Difficulty Paying for Meds: No Currently Unemployed: No Education: High School Diploma/GED Difficulty w/ Childcare or Family Care: No Living arrangements: with family Additional living arrangements comments: SUMEET Occupation/Education: retired Spiritual care concerns: No Meds Home Medications and Allergies Home Medications ?Medication ?Instructions ?Recorded ?Confirmed ?Type atenolol 50 mg tablet 50 mg PO QAM 01/15/23 03/04/24 History ibuprofen 200 mg capsule 400 mg PO Q6H PRN Pain 01/15/23 03/04/24 History omega-3 fatty acids 1,250 mg 1,250 mg PO BID 01/15/23 03/04/24 History capsule aspirin 81 mg tablet,delayed 81 mg PO DAILY 05/08/23 03/04/24 History release (Adult Low Dose Aspirin) verapamil 120 mg tablet 120 mg PO DIRECTED 05/08/23 03/04/24 History sennosides 8.6 mg tablet 8.6 mg PO DAILY PRN constipation 10/21/23 02/28/24 Rx #7 tabs cholecalciferol (vitamin D3) 25 25 mcg PO DAILY 01/31/24 03/04/24 History mcg (1,000 unit) capsule (Vitamin D3) ropinirole 0.5 mg tablet 0.5 mg PO HS 02/19/24 03/04/24 History Allergies Allergy/AdvReac Type Severity Reaction Status Date / Time Lepuqne-[id number]-InL Reductase Allergy rash, Verified 03/04/24 07:48 Inhibitor muscle pain Sulfa (Sulfonamide Allergy Hives Verified 03/04/24 07:48 Antibiotics) tolterodine (From Detrol) Allergy Chest Pain Verified 03/04/24 07:48 Vital Signs Vital Signs - 24 hr 03/04/24 07:36 Temperature 97.3 F L Pulse Rate 51 L Respiratory Rate 14 Blood Pressure 132/74 Pulse Oximetry 97 Oxygen Delivery Room Air Exam Narrative: General: cooperative, no acute distress, well developed, alert and awake Orientation/Consciousness: oriented to person, oriented to place and oriented to time Constitutional Limitations: no limitations Other: The patient is a normally developed, normal appearing female sitting on the examination table in no acute distress. She is awake, alert, and oriented x3 with good fund of knowledge, recall of events, and fluent speech. HENMT Head: normocephalic and atraumatic Ears: external ears normal Face/Nose/Sinus: Normal external nose present Eyes Eyelids: eyelids normal Pupils: Yes Pupils normal by confrontation EOM: EOMs intact bilaterally Neck General: Yes no meningeal signs, Yes supple and Yes no JVD Resp Effort/Inspection: normal respiratory effort and able to speak in complete sentences Cardio Rate: Yes regular rate GI Inspection: No abdominal distension Musc Other: Examination of the back reveals no tenderness paraspinally or over the sacrum. Range of motion of the back is limited by discomfort in forward flexion, extension, and lateral rotation. Straight leg raise is negative bilaterally. Reynaldo?s test is negative bilaterally. Skin General: normal color Neuro General: Yes oriented to person, Yes oriented to place, Yes oriented to time, Yes normal cognition and Yes no meningeal signs Cranial Nerves: Yes CN's II-XII intact bilaterally Other: Motor: Strength is normal (5/5) throughout all muscle groups of the bilateral lower extremities to direct confrontation. Sensory: Sensation is intact to light touch throughout the lower extremities bilaterally. Reflexes: Deep tendon reflexes are difficult to elicit at the knees and ankles bilaterally. They are slightly hyperactive at the brachioradialis and biceps but difficult to elicit the triceps. There is a mild Ngo's on the left. There is no ankle clonus. Gait: Gait, station, and transfers are independent and Slightly unsteady with the use of a cane for short periods of time and over short distances. Psych Appearance: grossly normal Mental status: Yes mental status grossly normal Mood: congruent mood Affect: Yes normal affect Speech/Movement: Normal speech and movement present Attitude: Yes cooperative Thought Content: Normal thought content present Review of studies: MRI of the cervical spine was personally reviewed by me. This demonstrates a central disc herniation at C6-7 which compresses the spinal cord. There is some T2 signal change within the cord. Assessment and Plan Assessment and plan (1) Cervical disc herniation: Code(s): M50.20 - Other cervical disc displacement, unspecified cervical region Status: Acute Plan Kala is a 68-year-old female with a likely cervical myelopathy given her symptoms of imbalance and findings on the MRI of compression of the spinal cord at C6-7 because the disc herniation. I have recommended her anterior cervical diskectomy and fusion to relieve compression on the spinal cord. I described to her that operation, its risks, potential benefits, the operative and postoperative course in detail and answered all her questions personally. We discussed risks including but not limited to permanent neurologic or functional deficit related injury of the trachea, esophagus, carotid artery, jugular vein, recurrent laryngeal nerve causing hoarseness or aspiration, spinal cord or nerve roots causing permanent neurologic deficit, need for reoperation secondary to infection, bleeding, CSF leak, adjacent level disease, recurrent residual pathology, instability, malposition migration of the hardware or nonunion, failure of the procedure to relieve her pain or symptoms, persistent pain, medical complications related anesthesia or surgery, etc.. She indicates understanding and elects to proceed with that operation.
--- NOTE | 2024-03-04 08:01 | WPDHPUPDATE1 ---
History and Physical Update Update Date/Time: 03/04/24 08:01 History and Physical has been reviewed, including an updated exam of the patient. There are NO changes in the patient's condition. Risks, benefits, and alternatives have been discussed and questions answered. Patient agrees to proceed with procedure.
[2024-03-04] MEDS: ceFAZolin 2 GM/D5W 50 ML 2 GM/50 ML BAG IVPB (08:20)
[2024-03-04] MEDS: LIDO 1%/EPINEPHRINE 1:100,000 20 ML VIAL 10 ML INFILTRATE (08:48)
--- NOTE | 2024-03-04 10:12 | W.PM.PROC2 ---
Procedure Note - Detailed Date of Procedure 03/04/24 Pre-op Diagnosis herniated nucleus pulposus, stenosis, Post-op Diagnosis Same Procedure Performed C6-7 complete diskectomy and bilateral neural foraminotomy, C6-7 interbody arthrodesis utilizing peek interbody device, local autograft and I factor, C6-7 anterior cervical plating with locking plate and screws Surgeon Ac Delvalle MD Anesthesia General Description of Procedure Patient was brought to the operating room in the supine position, was sedated, intubated placed under general anesthesia in routine fashion. The area of operation on the right side of the neck was examined, marked for incision, prepped and draped in routine sterile fashion. Incision was marked from the midline over the medial aspect of the sternocleidomastoid muscle and curvilinear transverse fashion 2 fingerbreadths above the sternal notch. This area was injected with 0.5% lidocaine with [id number] epinephrine. Intravenous antibiotics given prior to incision. Incision was made with a 10 blade scalpel down to platysma muscle. The skin was undermined the platysma muscle was divided longitudinally with its fibers with Metzenbaum scissors. Some bleeding from the external jugular or a branch of it was encountered at this point and was stopped with bipolar cautery. A plane was dissected down to the anterior aspect of the spine using the finger and Metzenbaum scissors. A verifying x-rays obtained to verify the level of operation. At the C6-7 level the longus colli muscle was dissected free of the anterior aspect of the spine using Bovie cautery. Self-retaining retractor was placed. Robson pins were placed in C6 and C7 and distraction placed over the disc space. The disc space was entered using a 15 blade scalpel cutting along the margin of the bone above and below. Curved curette pituitary rongeur were used to remove as much cartilaginous endplate and disc material as possible down to the annulus and ligament posteriorly. A Midas Simone drill was used to bur down the endplates to bleeding cortical flat surfaces as well as to begin a bony foraminotomy bilaterally. Under microscopy the annulus and ligament were interrupted using a curved curette. 2. Kerrison punch was then used to remove annulus, ligament and posterior osteophyte as well as disc herniation in the midline. This was done out to the side on each side where a bony foraminotomy was completed bilaterally. These maneuvers were performed until a nerve hook could be placed out each foramen to confirm lack of compression. The disc space was incised in the appropriately sized interbody device was chosen and filled with local autograft bone. A 7 mm device was chosen. This was filled with I factor and local autograft bone. He was then placed into the disc space to a 1-2 mm countersink. Anterior cervical plating was achieved by choosing a 12 mm plate placing it in position and securing it using 414 x 4 mm anterior screws advanced into the locking mechanism of the plate to hand tightness after the cortex was pierced with an awl. The locking mechanism was then engaged at each screw using the appropriate screwdriver. The wound was then copiously irrigated with bacitracin irrigation all bleeding stopped with bipolar and Bovie cautery and Gelfoam thrombin powder. There was no bleeding noted superficially or deep at closure. The wound was closed with 3-0 Vicryl buried interrupted sutures in the platysma muscle and in the dermis. The skin was closed with a running 4-0 Monocryl subcuticular stitch and dressed with Dermabond. Patient was then allowed wake up in the operating room and was taken to the recovery room in stable condition. There were no immediate complications of this operation. All counts were reported correct at the end of the case. Blood loss was 25 cc. The patient was neurologically at her baseline postoperatively. CPT codes: 32742, 05118, 22487, 77459 Estimated Blood Loss 25 Complications None Condition Stable Disposition PACU [facility] Billing Surgery - Charge Forward: Surgery Billing
[2024-03-04] MEDS: fentaNYL CITRATE INJ (*CRX) 100 MCG/2 ML VIAL 25 MCG IV PUSH ×3 (10:20→10:39)
[2024-03-04] MEDS: oxyCODONE HCL (*CRX) 5 MG TAB IR PO (11:15)
[2024-03-04] MEDS: ONDANSETRON INJ 4 MG/2 ML VIAL IV PUSH (11:34)
== END 2024-03-04 12:29 | disposition home or self-care (01) ==
PROVIDERS: PCP Nurse Practitioner Adult Health; Visit Provider Neurological Surgery
PROC: (CPT 63030; principal; 2024-03-04 07:30)
DX: M50.223 Other cervical disc displacement at C6-C7 level (principal); M25.78 Osteophyte, vertebrae; I10 Essential (primary) hypertension; E66.9 Obesity, unspecified; Z68.36 Body mass index [BMI] 36.0-36.9, adult; Z79.82 Long term (current) use of aspirin; Z79.1 Long term (current) use of non-steroidal anti-inflammatories (NSAID); Z98.890 Other specified postprocedural states; Z98.1 Arthrodesis status; Z87.891 Personal history of nicotine dependence
CPT/HCPCS: 22551; 22853; 20936; 36415; 80048; 81003; 85027; 85610; 85730; 86850; 86900; 86901; 99199; A9270; C1713; J0690; J1100; J1596; J2003; J2004; J2250; J2270; J2405; J2704; J3010; J7120

== ENCOUNTER 2024-05-29 14:35 | Outpatient (CLI) | payer MEDICARE, MEDICAID, SELFPAY ==
--- NOTE | ~2024-05-29 | XR_ITS ---
XR ankle LT min 3V Ordering provider: Jenni Martino APRN History: . pain in lt lat ankle x 2 months, rolling inj . Comparison: None. FINDINGS: BONES: No definite acute fracture or dislocation. Lucency is seen in the lateral malleolus with no de finite fracture. Clinical correlation for tenderness in the area advised. JOINT SPACES: The ankle mortise is normal. SOFT TISSUES: Soft tissue swelling over the lateral and medial malleoli. Calcaneal spur. IMPRESSION: No definite acute osseous abnormality left ankle. Lucency seen in the lateral malleolus. Clinical cor relation and follow-up advised. Reviewed, dictated and finalized at location A. MILLER IMPRESSION: No definite acute osseous abnormality left ankle. Lucency seen in the lateral m alleolus. Clinical correlation and follow-up advised.
--- NOTE | ~2024-05-29 | XR_ITS ---
XR knee LT 3V Ordering provider: Jenni Martino APRN History: . chronic left knee pain . Comparison: None. FINDINGS: BONES: No acute fracture or dislocation. JOINT SPACES: Narrowing of the lateral compartment. Marginal osteophytes seen in the knee and patella . SOFT TISSUES: Normal. IMPRESSION: No acute osseous abnormality left knee. Moderate osteoarthritic changes. Reviewed, dictated and finalized at location A. TRUCTION SAFETY MANAGER
--- OUTSIDE RECORDS SUMMARY | 2024-05-29 15:56 | XMS_ITS | Clinical Summary ---
Author Organization [facility] Address [facility] [place] [address] Care Team Providers Care Dining Room Coordinator Name Role Phone Chaparrita Saravanan FREITAS Primary Care Provider [phone] Ac Delvalle MD Unavailable [phone] Allergies Active Allergy Reactions Criticality Noted Date Comments Atorvastatin Hives,Myalgias 09/03/2015 depression Niacin Hives,Myalgias Low 09/03/2015 Sulfa Antibiotics Hives 10/28/2018 Tramadol Leg Pain,Other (see comment) 10/16/2023 lightheadedness Medications atenolol 50 MG tablet Take 1 tablet (50 mg total) by mouth every morning. Blood pressure 04/20/2008 Active verapamil 120 MG tablet Take 2 tablets (240 mg total) by mouth daily. Active verapamil 120 MG tablet Take 1 tablet (120 mg total) by mouth every evening. Active Active Problems Problem Noted Date Diagnosed Date Lumbar stenosis with neurogenic claudication Spinal stenosis 04/06/2023 Bilateral primary osteoarthritis of knee 021 Pain in right knee 06/02/2020 Unilateral primary osteoarthritis, right knee S/P total knee arthroplasty, right 06/02/2020 Low back pain 10/30/2018 Family History Medical History Relation Comments Diabetes Mother Hypertension Mother Breast Cancer Paternal Aunt Relation Status Comments Father Mother Paternal Aunt Social History Tobacco Use Types Packs/Day Years Used Date Smoking Tobacco: Former Cigarettes Smokeless Tobacco: Never Tobacco Cessation:Counseling Given: Not Answered Comments:social smoker quit 30yrs ago. 1 pack usually lasted a month Alcohol Use Standard Drinks/Week Comments Yes 0 (1 standard drink = 0.6 oz pur e alcohol) socially [id number] Health Literacy Answer Date Recor ded How often do you need to hav e someone help you when you read instructions, pamphlets, or other written material from your doctor or pharmacy? Rarely 10/16/2023 [facility] Utilities Answer Date Recorded In the past 12 months has e [employer], gas, oil, or water Numerous threatened to shut off services in your home? No 10/16/2023 Humiliation, Afraid, Rape, and Kick questionnair e Answer Date Recorded Within the last year, have y ou been afraid of your partner or ex-partner? No 10/16/2023 Within the last year, have y ou been humiliated or emotionally abused in other ways by your partner or ex-partner? No Within the last year, have y ou been kicked, hit, slapped, or otherwise physically hurt by your partner or ex-partner? No 10/16/2023 Within the last year, have y ou been raped or forced to have any kind of sexual activity by your partner or ex-partner? No 10/16/2023 Overall Financial Resource Strain (CARDIA) Answe r Date Recorded How hard is it for you to pa y for the very basics like food, housing, medical care, and heating? Not hard at all 10/16/2023 [facility] [place] of Occupat ional Health - Occupational Stress Questionnaire Answer Date Recorded Do you feel stress - tense, restless, nervous, or anxious, or unable to sleep at night because your mind is troubled all the time - these days? Not at all 10/16/2023 Exercise Vital Sign Answer Date Recorde d On average, how many days pe r week do you engage in moderate to strenuous exercise (like a brisk walk)? 0 days 10/16/2023 On average, how many minutes do you engage in exercise at this level? 0 min 10/16/2023 Hunger Vital Sign Answer Date Recorded Within the past 12 months, y ou worried that your food would run out before you got the money to buy more. Never true 10/16/19 24 Within the past 12 months, t he food you bought just didn't last and you didn't have money to get more. Never true 10/16/2023 PRAPARE - Transportation Answer Date Re corded In the past 12 months, has l ack of transportation kept you from medical appointments or from getting medications? No 09/24 In the past 12 months, has l ack of transportation kept you from meetings, work, or from getting things needed for daily living? No 10/16/2023 Housing Stability Vital Sign Answer Josep e Recorded In the last 12 months, was t here a time when you were not able to pay the mortgage or rent on time? No 10/16/2023 In the past 12 months, how m any times have you moved where you were living? 1 10/16/2023 At any time in the past 12 m [facility], were you homeless or living in a longterm (including now)? No 10/16/2023 Comments No Sex and Gender Information Value Date Recorded Sex Assigned at Not on file Legal Sex Female 6:08 PM CDT Gender Identity Not on file Sexual Orientation Not on file Last Filed Vital Signs Vital Sign Reading Time Taken Comments Blood Pressure 117/57 10/18/2023 11:24 AM CDT Pulse 66 10/18/2023 11:24 AM CDT Temperature 36.5 C (97.7 F) 10/18/2023 11:24 AM CDT Respiratory Rate 14 10/18/2023 11:24 AM CDT Oxygen Saturation 93% 10/18/2023 11:24 AM CDT Inhaled Oxygen Concentration - - Weight 92.6 kg (204 lb 2.3 oz) 10/16/2023 6:50 A M CDT Height 162.6 cm (5' 4 ) 10/16/2023 6:50 AM CDT Body Mass Index 35.04 10/16/2023 6:50 AM CDT Plan of Treatment Health Maintenance Due Date Last Done Comments Colorectal Cancer Screening Colonoscopy (10 Years) 1953 Hepatitis C 1971 DTaP, Tdap and Td Vaccines ( 1 - Tdap) 1972 Zoster Vaccines (1 of 2) 2003 Annual Medicare Wellness Visit 2018 Dexa Scan (General) 2018 Pneumococcal Vaccine: 65+ Years (1 of 1 - PCV) 2018 COVID-19 Vaccine (2023-2 5 season) 2023 Influenza Adult (#1) 2023 Mammogram Screening 08/08/2025 08/09/2023, 08/30/2020 RSV Immunization or 60+ Years (1 - 1-dose 75+ series) 2028 Meningococcal B Vaccine Aged Out No l onger eligible based on patient's age to complete this topic Meningococcal Vaccine Aged Out No kailash marquita eligible based on patient's age to complete this topic RSV Immunizations Under 20 Months Aged Out No longer eligible b ased on patient's age to complete this topic Goals Goal Patient Goal Type Associated Problems Recent Progress Patient-Stated? Author Family - family caregiver with be involved in care transitions and discharge planning Lifestyle No Balwinder Simons, RN Medical Devices Implanted Type Area Flying Squad Salesperson Device Identifier Shelf Expiration Date Model / Serial / Lot Forza Ti Spacer System Intervertebral Body Fusion Spinal Device Implanted:Qty: 2 on 10/16/2023 by Ac Delvalle MD at [facility] Cage N/A: Spine Lumbar ORTHOFIX 09/07/2025 38-2011SP / / [id number] Forza Ti Spacer System Intervertebral Body Fusion Spinal Device Implanted:Qty: 2 on 10/16/2023 by Ac Delvalle MD at [facility] Cage N/A: Spine Lumbar ORTHOFIX 09/08/2025 [id number] / / 002 140 Mm Medhat Implanted:Qty: 2 on 10/16/2023 by Ac Delvalle MD at [facility] Medhat N/A: Spine Lumbar NEW AGE MEDICAL 52-2140 / / 65 X 50 Mm Screw Implanted:Qty: 4 on 10/16/2023 by Ac Delvalle MD at [facility] Screw N/A: Spine Lumbar NEW AGE MEDICAL 44-5650 / / Set Screw Implanted:Qty: 11 on 10/16/2023 by Ac Delvalle MD at [facility] Screw N/A: Spine Lumbar NEW AGE MEDICAL 36-2000 / / 7.5 X 45 Mm Screw Implanted:Qty: 5 on 10/16/2023 by Ac Delvalle MD at [facility] Screw N/A: Spine Lumbar NEW AGE MEDICAL 44-5745 / / 8.5 X 85 Mm Screw Implanted:Qty: 1 on 10/16/2023 by Ac Delvalle MD at [facility] Screw N/A: Spine Lumbar NEW AGE MEDICAL 77-5988 / / 8.5 X 75 Mm Screw Implanted:Qty: 1 on 10/16/2023 by Ac Delvalle MD at [facility] Screw N/A: Spine Lumbar NEW AGE MEDICAL 77-6086 / / Graft Bone Ic Chambers 15cc [employer] - [id number] Implanted:Qty: 1 on 10/30/2018 by Nabeel Guallpa MD at [facility] N/A: Back [facility] 09/16/2020 [id number] / / Pro Lift Expandable Adjustable Spacer Implanted:Qty: 1 on 10/30/2018 by Nabeel Guallpa MD at [facility] N/A: Back LIF[employer]INE 01/03/2021 58-1228-1 210P / / [id number] Prolift Expandable Adustable Spacer System Implanted:Qty: 1 on 10/30/2018 by Nabeel Guallpa MD at [facility] N/A: Back LIFESPINE 02/26/2021 58-1228-1 210P / / [id number] K Wire Implanted:Qty: 6 on 10/30/2018 by Nabeel Guallpa MD at [facility] N/A: Back LIFESPINE 2867-05-2 00 / / Nxg Head Implanted:Qty: 11 on 10/16/2023 by Ac Delvalle MD at [facility] N/A: Spine Lumbar [facility] AGE MEDICAL [id number] / / Explanted Type Area Flying Squad Salesperson Device Identifier Shelf Expiration Date Model / Serial / Lot Medhat Depuy Spine 65mm - [id number] Implanted:Qty: 2 on 10/30/2018 by Nabeel Guallpa MD at [facility] Explanted:Qty: 2 on 10/16/2023 by Ac Delvalle MD at [facility] Medhat N/A: Back [employer] 10/31/2019 1867-88-065 / / NA 7.5 X 45 Mm Screw Explanted:Qty: 1 on 10/16/2023 by Ac Delvalle MD at [facility] Screw N/A: Spine Lumbar [facility] MEDICAL 44-5745 / / Xtab Viper Depuy 7 X 45 - [id number] Implanted:Qty: 6 on 10/30/2018 by Nabeel Guallpa MD at [facility] Explanted:Qty: 6 on 10/16/2023 by Ac Delvalle MD at [facility] N/A: Back [employer] [id number] / / Screw Set Depuy - [id number] Implanted:Qty: 6 on 10/30/2018 by Nabeel Guallpa MD at [facility] Explanted:Qty: 6 on 10/16/2023 by Ac Delvalle MD at [facility] N/A: Back [employer] [id number] / / Nxg Head Explanted:Qty: 1 on 10/16/2023 by Ac Delvalle MD at [facility] N/A: Spine Lumbar [facility] [id number] / / Procedures Procedure Name Priority Date/Time Associated Diagnosis Comments MG SCREENING W SARAH RUIZ DIGI Routine 08/09/2023 1:50 PM CDT Visit for screening mammogram from Last 3 Months or Most Recently Relevant to Health Maintenance Results * MG SCREENING W SARAH RUIZ DIGI (08/09/2023 1:50 PM CDT) Anatomical Region Laterality Modality Breast Bilateral Mammography 08/09/2023 4:09 PM CDT Impressions 08/09/2023 4:10 PM CDT IMPRESSION: No interval features to suggest malignancy. In the absence of clinical symptoms, return for annual screening mammogram due in 1 year. RECOMMENDATION: Routine Screening, Bilateral Mammogram in 1 year ASSESSMENT: ACR BI-RADS 1 - NEGATIVE Ordered By: SARAVANAN ESPINOZA Interpreted By: Arian Kulkarni MD, 08/09/2023 4:09 PM Narrative 08/09/2023 4:10 PM CDT EXAMINATION: BILATERAL SCREENING MAMMOGRAPHY Exam Date: 08/09/2023 1:16 PM CLINICAL INDICATION: 68 years of age female routine screening. COMPARISON: Dating back to 08/30/2020 TECHNIQUE: Digital CC & MLO views. Tomosynthesis imaging acquisition Study read with the assistance of a computer-aided detection system. TISSUE DENSITY: There are scattered areas of fibroglandular density. FINDINGS: No suspicious grouping of microcalcifications, architectural distortion, or any suspicious nodule 3 dimensionally demonstrated in either breast. Saravanan Espinoza [place] MAMMO Final Result from Last 3 Months or Most Recently Relevant to Health Maintenance Insurance AETNA Advance Directives Documents on File Type Date Recorded Patient Exhibition Organiser Expl anation Advance Directives and Living Will 10/25/2023 11:31 AM 04/20/1998 [place] DECLARATION * Full Code (Latest Code Status on File) Date Activated Date Inactivated Comments 10/16/2023 3:58 PM 10/18/2023 2:16 PM * Full Code Date Activated Date Inactivated Comments 10/31/2018 9:19 AM 10/31/2018 4:59 PM Care Teams Dining Room Coordinator Relationship Specialty Start Date End Date Saravanan Espinoza PA [address] [place] [address] PCP - General PHYSICIAN MANAGER MBA 10/25/18 Ac Delvalle MD [address] [place] [address] Surgeon NEUROLOGICAL SURGERY 10/02/23
--- OUTSIDE RECORDS SUMMARY | 2024-05-29 15:56 | XMS_ITS | Encounter Summary ---
Author Organization [facility] Address [address] [place] [address] Care Team Providers Care Fisher Lobster Name Role Phone Edelmira Cheatham Primary Care Provider [phone] Ac Delvalle MD Unavailable [phone] Encounter Details Date Type Department Care Team (Late st Contact Info) Description 06/09/2017 Abstract [facility] CON[facility] [address], [place] [address] , Generic ConversionMD Social History Tobacco Use Types Packs/Day Years Used Date Smoking Tobacco: Never Comments Unknown Sex and Gender Information Value Date Recorded Sex Assigned at Not on file Legal Sex Female 6:08 PM CDT Gender Identity Not on file Sexual Orientation Not on file documented as of this encounter Plan of Treatment Not on file documented as of this encounter Visit Diagnoses Not on filedocumented in this encounter Additional Health Concerns Infection Onset Date Last Indicated Resolved Time COVID-19 Rule Out 05/28/2020 05/28/2020 05/30/2020 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
== END 2024-05-29 14:36 | disposition home or self-care (01) ==
LOC: ANHBWCIMG 14:37
PROVIDERS: PCP Nurse Practitioner Adult Health; Visit Provider Nurse Practitioner Adult Health
DX: M17.12 Unilateral primary osteoarthritis, left knee (principal)
CPT/HCPCS: 73562; 73610

== ENCOUNTER 2024-07-09 12:48 | Outpatient (CLI) | payer MEDICARE, MEDICAID, SELFPAY ==
--- NOTE | ~2024-07-09 | DEXA_ITS ---
Bone Density Report Name: BO JANE Age: 69 Sex: Female Ethnicity: White Date of : 1955 Indication: postmenopausal; screening for osteoporosis; hysterectomy; Referring Provider: SHALINI JOHNSON Study: Bone densitometry was performed. Exam Date: July 09, 2024 Accession number: [id number] Bone Density: Region BMD T-score Z-score Classification Femoral Neck (Left) 0.634 -1.9 -0.1 Osteopenia Total Hip (Left) 0.856 -0.7 0.9 Normal Femoral Neck (Right) 0.654 -1.8 0.1 Osteopenia Total Hip (Right) 0.847 -0.8 0.8 Normal Femoral Neck Mean 0.644 -1.8 0.0 Osteopenia Total Hip Mean 0.851 -0.7 0.8 Normal World Health Organization criteria for BMD impression classify patients as: Normal (T-score at or above -1.0), Osteopenia (T-score between -1.0 and -2.5), or Osteoporosis (T-score at or below -2.5). 10-year Fracture Risk(1): Major Osteoporotic Fracture 11% Hip Fracture 2.0% Reported Risk Factors: [place] (), Neck BMD=0.634, BMI=36.0 (1) FRAX(R) Version 3.08. Fracture probability calculated for an untreated patient. Fracture probability may be lower if the patient has received treatment. Clinical Information Provided by Patient: Has used the following medications: Vitamin D Has the following medical conditions: Hysterectomy Patient maximum height was 64 Menopause Age: 43 No regular weight bearing exercise Does not regularly consume dairy products Drinks caffeinated beverages Onset of menses at age 9 Number of children 1 Impression: The patient has low bone mass, based on the Left Femoral Neck T-score. Discussion: BONE DENSITY IS LOW AT ONE OR MORE SKELETAL SITES. This patient's lowest T-score is low at one or more skeletal sites. It meets the World Health Organization's (WHO) criteria for ?low bone mass? (T-score between -1.0 and -2.5). The patient's 10-year risk of fracture as calculated by FRAX is less than the threshold where pharmacological therapy is recommended by the National Osteoporosis Foundation (NOF). However, all treatment decisions require clinical judgment and consideration of individual patient factors, including patient preferences, comorbidities, previous drug use, risk factors not captured in the FRAX model (e.g., frailty, falls, vitamin D deficiency, increased bone turnover, interval significant decline in bone density) and possible under or overestimation of fracture risk by FRAX. The patient should follow a healthful lifestyle (good nutrition with adequate calcium and vitamin D, and appropriate weight-bearing exercise). Follow-Up: Consider repeating this study in 2 to 3 years to reassess this patient's status, or sooner if there is some new clinical indication. Reported by: JOSEPH on 07/09/2024 1:25:00 PM. Reviewed, dictated and finalized at location A.
--- OUTSIDE RECORDS SUMMARY | 2024-07-09 13:46 | XMS_ITS | Encounter Summary ---
Author Organization [facility] Address [facility] [place] [address] Care Team Providers Care Golf Club Maker Name Role Phone Edelmira Cheatham Primary Care Provider Ac Delvalle MD Unavailable [phone] Encounter Details Date Type Department Care Team (Late Contact Info) Description 06/09/2017 Abstract [facility] CONVERSION [address] [place] [address] , Generic Conversion, Social History Tobacco Use Types Packs/Day Years Used Date Smoking Tobacco: Never Comments Unknown Sex and Gender Information Value Date Recorded Sex Assigned at Not on file Legal Sex Female 6:08 PM CDT Gender Identity Not on file Sexual Orientation Not on file documented as of this encounter Plan of Treatment Upcoming Encounters Date Type Department Care Team (Late Contact Info) Description 07/22/2024 1:00 PM CDT Appointment [facility] [address] [place] [address] Mona Massey, PT [address] [place] [address] documented as of this encounter Visit Diagnoses Not on filedocumented in this encounter Additional Health Concerns Infection Onset Date Last Indicated Resolved Time COVID-19 Rule Out 05/28/2020 05/28/2020 05/30/2020 8:06 AM MEDICINE TECH documented as of this encounter Care Teams Golf Club Maker Relationship Specialty Start Date End Date Edelmira Cheatham PA [address] [place] [address] PCP - General PHYSICIAN PICTURE FRAMES INSPECTOR 10/25/18 Ac Delvalle MD [address] [place] [address] Surgeon NEUROLOGICAL SURGERY 10/02/23 documented as of this encounter
--- OUTSIDE RECORDS SUMMARY | 2024-07-09 13:46 | XMS_ITS | Clinical Summary ---
Author Organization [facility] Address [facility] [place] [address] Care Team Providers Care Technical Services Specialist Name Role Phone Saravanan Espinoza Primary Care Provider [phone] Ac Delvalle MD Unavailable [phone] Allergies Active Allergy Reactions Criticality Noted Date [...] Active Problems Problem Noted Date Diagnosed Date Pain in left knee 07/03/2024 Lumbar stenosis with neurogenic claudication Spinal stenosis 04/06/2023 Bilateral primary osteoarthritis of knee 021 Pain in right knee 06/02/2020 Unilateral primary osteoarthritis, right knee S/P total knee arthroplasty, right 06/02/2020 Low back pain 10/30/2018 Encounters Date Type Department Care Team Description 07/03/2024 3:00 PM CDT - 07/03/2024 11:59 PM CDT Hospital Encounter [facility] [address] [place] [address] Mona Massey, PT Knee Pain Discharge Disposition: Home or Self Care (Routine Discharge) 07/03/2024 Travel from Last 3 Months Family History Medical History Relation Comments Diabetes [...] from your doctor or pharmacy? Rarely 10/16/2023 [facility] Utilities Answer Date Recorded In the past 12 months has e electric, gas, oil, or water [employer] threatened to shut off services in your [...] and heating? Not hard at all 10/16/2023 [facility] [place] of Occupat ional Health - Occupational Stress [...] any time in the past 12 m [facility], were you homeless or living in a assisted (including now)? No 10/16/2023 Comments No Sex [...] 10/16/2023 6:50 AM CDT Plan of Treatment Upcoming Encounters Date Type Department Care Team (Late st Contact Info) Description 07/22/2024 1:00 PM CDT Appointment [facility] [address] [place] [address] Mona Massey, PT [address] [place] [address] Health Maintenance Due Date Last Done Comments Colorectal Cancer Screening Colonoscopy (10 Years) 1953 Hepatitis C 1971 DTaP, Tdap and Td Vaccines ( 1 - Tdap) 1972 Pneumococcal Vaccine: 50+ Years (1 of 1 - PCV) 2003 Zoster Vaccines (1 of 2) 2003 Annual Medicare Wellness Visit 2018 Dexa Scan (General) 2018 COVID-19 Vaccine ( - 2023-2 5 season) 2023 Mammogram Screening 08/08/2025 08/09/2023, 08/30/2020 RSV [...] Simons, RN Medical Devices Implanted Type Area Marketing Operations Specialist Device Identifier Shelf Expiration Date Model / Serial / Lot Forza Ti Spacer System Intervertebral Body Fusion Spinal Device Implanted:Qty: 2 on 10/16/2023 by Ac Delvalle MD at [facility] [employer] Cage N/A: Spine Lumbar ORTHOFIX 09/07/2025 38-2011SP / / 012 Forza Ti Spacer System Intervertebral Body Fusion Spinal Device Implanted:Qty: 2 on 10/16/2023 by Ac Delvalle MD at [facility] [employer] Cage N/A: Spine Lumbar ORTHOFIX 09/08/2025 [id number] / / 002 140 Mm Medhat Implanted:Qty: 2 on 10/16/2023 by Ac Delvalle MD at [facility] Medhat N/A: Spine Lumbar NEW AGE MEDICAL 52-2140 / / 65 X 50 Mm Screw Implanted:Qty: 4 on 10/16/2023 by Ac Delvalle MD at [facility] Screw N/A: Spine Lumbar NEW AGE MEDICAL 44-5650 / / Set Screw Implanted:Qty: 11 on 10/16/2023 by Ac Delvalle MD at [facility] Screw N/A: Spine Lumbar NEW AGE MEDICAL 36-2001 / / 7.5 X 45 Mm Screw Implanted:Qty: 5 on 10/16/2023 by Ac Delvalle MD at [facility] Screw N/A: Spine Lumbar NEW AGE MEDICAL 44-5745 / / 8.5 X 85 Mm Screw Implanted:Qty: 1 on 10/16/2023 by Ac Delvalle MD at [facility] Screw N/A: Spine Lumbar NEW AGE MEDICAL 77-8885 / / 8.5 X 75 Mm Screw Implanted:Qty: 1 on 10/16/2023 by Ac Delvalle MD at [facility] Screw N/A: Spine Lumbar NEW AGE MEDICAL 77-8875 / / Graft Bone Ic Chambers 15cc [facility] - [id number] Implanted:Qty: 1 on 10/30/2018 by Nabeel Guallpa MD at [facility] N/A: Back [facility] 09/16/2020 [id number] / / Pro Lift Expandable Adjustable Spacer Implanted:Qty: 1 on 10/30/2018 by Nabeel Guallpa MD at [facility] N/A: Back [employer] 01/03/2021 58-1228-1 210P / / IO22 Prolift Expandable Adustable Spacer System Implanted:Qty: 1 on 10/30/2018 by Nabeel Guallpa MD at [facility] N/A: Back LIFESPINE 02/26/2021 58-1228-1 210P / / [id number] K Wire Implanted:Qty: 6 on 10/30/2018 by Nabeel Guallpa MD at [facility] N/A: Back LIFESPINE 2867-05-2 00 / / Nxg Head Implanted:Qty: 11 on 10/16/2023 by Ac Delvalle MD at [facility] N/A: Spine Lumbar NEW AGE MEDICAL 36-2101 / / Explanted Type Area Marketing Operations Specialist Device Identifier Shelf Expiration Date Model / Serial / Lot Medhat Depuy Spine 65mm - [id number] Implanted:Qty: 2 on 10/30/2018 by Nabeel Guallpa MD at [facility] Explanted:Qty: 2 on 10/16/2023 by Ac Delvalle MD at [facility] Medhat N/A: Back DEPU[employer] - [employer] 10/31/2019 [id number] / / NA 7.5 X 45 Mm Screw Explanted:Qty: 1 on 10/16/2023 by Ac Delvalle MD at [facility] Screw N/A: Spine Lumbar [facility] MEDICAL 44-5745 / / Xtab Viper Depuy 7 X 45 - [id number] Implanted:Qty: 6 on 10/30/2018 by Nabeel Guallpa MD at [facility] Explanted:Qty: 6 on 10/16/2023 by Ac Delvalle MD at [facility] N/A: Back [employer] [id number] / / Screw Set Depuy - [id number] Implanted:Qty: 6 on 10/30/2018 by Nabeel Guallpa MD at [facility] Explanted:Qty: 6 on 10/16/2023 by Ac Delvalle MD at [facility] N/A: Back [employer] [id number] / / Nxg Head Explanted:Qty: 1 on 10/16/2023 by Ac Delvalle MD at [facility] N/A: Spine Lumbar NEW AGE MEDICAL 36-2101 / / Procedures Procedure Name Priority Date/Time [...] 3 dimensionally demonstrated in either breast. Saravanan FREITAS MAMMO Final Result from Last 3 Months or Most Recently Relevant to Health Maintenance Insurance AETNA Advance Directives Documents on File Type Date Recorded Patient Tax Accounting Assistant Expl anation Advance Directives and Living Will 10/25/2023 11:31 AM 04/20/1998 [place] DECLARATION * Full Code (Latest Code Status on File) Date Activated Date Inactivated Comments 10/16/2023 3:58 PM 10/18/2023 2:16 PM * Full Code Date Activated Date Inactivated Comments 10/31/2018 9:19 AM 10/31/2018 4:59 PM Care Teams Technical Services Specialist Relationship Specialty Start Date End Date Saravanan Espinoza PA [address] [place] [address] PCP - General PHYSICIAN POULTRY OFFAL ICER 10/25/18 Ac Delvalle MD [address] [place] [address] Surgeon NEUROLOGICAL SURGERY 10/02/23
== END 2024-07-09 12:49 | disposition home or self-care (01) ==
PROVIDERS: PCP Nurse Practitioner Adult Health; Visit Provider Orthopaedic Surgery
DX: Z78.0 Asymptomatic menopausal state (principal); M85.89 Other specified disorders of bone density and structure, multiple sites
CPT/HCPCS: 77080

== ENCOUNTER 2024-07-18 11:47 | Outpatient (CLI) | payer MEDICARE, MEDICAID, SELFPAY ==
--- NOTE | ~2024-07-18 | US_ITS ---
EXAMINATION:US venous doppler LE LT INDICATION:Leg edema TECHNIQUE: Multiple grayscale, color flow and Doppler images of the left lower extremity deep venous systems were obtained and reviewed. COMPARISON:No prior studies for comparison. FINDINGS: The common femoral, superficial femoral and popliteal veins demonstrate normal respiratory variation, augmentation and compressibility. Color flow is also seen within the posterior tibial, pe roneal, greater saphenous and profunda veins. IMPRESSION: 1: No lower extremity deep venous thrombosis. Reviewed, dictated and finalized at location A.
--- OUTSIDE RECORDS SUMMARY | 2024-07-18 12:02 | XMS_ITS | Encounter Summary ---
Author Organization [facility] Address [facility] [place] [address] Care Team Providers Care Supervisor Plasma Name Role Phone Edelmira Cheatham Primary Care Provider [phone] Ac Delvalle MD Unavailable [phone] Encounter Details Date Type Department Care Team (Late Contact Info) Description 06/09/2017 Abstract [facility] CONVERSION [address] [place] [address] , Generic Conversion, Social History Tobacco Use [...] Info) Description 07/22/2024 1:00 PM CDT Appointment [facility] [address] [place] [address] Mona Massey, PT [address] [place] [address] documented as of this encounter Visit Diagnoses Not on filedocumented in this encounter Additional Health Concerns Infection Onset Date Last Indicated Resolved Time COVID-19 Rule Out 05/28/2020 05/28/2020 05/30/2020 8:06 AM SHANK STAPLER documented as of this encounter Care Teams Supervisor Plasma Relationship Specialty Start Date End Date Edelmira Cheatham PA [address] [place] [address] PCP - General PHYSICIAN FIRE MANAGER 10/25/18 Ac Delvalle MD [address] [place] [address] Surgeon NEUROLOGICAL SURGERY 10/02/23 documented as of this encounter
--- OUTSIDE RECORDS SUMMARY | 2024-07-18 12:02 | XMS_ITS | Clinical Summary ---
Author Organization [facility] Address [facility] [place] [address] Care Team Providers Care Hot Head Machine Operator Name Role Phone Saravanan Espinoza Primary Care Provider [phone] Ac Delvalle MD Unavailable [phone] Allergies Active Allergy Reactions Criticality Noted Date [...] - 07/03/2024 11:59 PM CDT Hospital Encounter [facility] [address] [place] [address] Mona Massey, PT Knee Pain Discharge Disposition: [...] from your doctor or pharmacy? Rarely 10/16/2023 [facility] Utilities Answer Date Recorded In the past 12 months has e electric, gas, oil, or water [email or web address] threatened to shut off services in your [...] and heating? Not hard at all 10/16/2023 [facility] of Occupat ional Health - Occupational Stress [...] any time in the past 12 m [facility], were you homeless or living in a skilled nursing (including now)? No 10/16/2023 Comments No Sex [...] Info) Description 07/22/2024 1:00 PM CDT Appointment [facility] [address] [place] [address] Mona Massey, PT [address] [place] [address] Health Maintenance Due Date Last Done Comments [...] Simons, RN Medical Devices Implanted Type Area Racquet Maker Device Identifier Shelf Expiration Date Model / Serial / Lot Forza Ti Spacer System Intervertebral Body Fusion Spinal Device Implanted:Qty: 2 on 10/16/2023 by Ac Delvalle MD at [facility] [employer] Cage N/A: Spine Lumbar ORTHOFIX 09/07/2025 [id number] / / [id number] Forza Ti Spacer System Intervertebral Body Fusion Spinal Device Implanted:Qty: 2 on 10/16/2023 by Ac Delvalle MD at [facility] [employer] Cage N/A: Spine Lumbar ORTHOFIX 09/08/2025 [id number] / / [id number] 140 Mm Medhat Implanted:Qty: 2 on 10/16/2023 by Ac Delvalle MD at [facility] Medhat N/A: Spine Lumbar NEW AGE MEDICAL [id number] / / 65 X 50 Mm Screw Implanted:Qty: 4 on 10/16/2023 by Ac Delvalle MD at [facility] Screw N/A: Spine Lumbar NEW AGE MEDICAL [id number] / / Set Screw Implanted:Qty: 11 on 10/16/2023 by Ac Delvalle MD at [facility] Screw N/A: Spine Lumbar NEW AGE MEDICAL [id number] / / 7.5 X 45 Mm Screw Implanted:Qty: 5 on 10/16/2023 by Ac Delvalle MD at [facility] Screw N/A: Spine Lumbar NEW AGE MEDICAL [id number] / / 8.5 X 85 Mm Screw Implanted:Qty: 1 on 10/16/2023 by Ac Delvalle MD at [facility] Screw N/A: Spine Lumbar NEW AGE MEDICAL [id number] / / 8.5 X 75 Mm Screw Implanted:Qty: 1 on 10/16/2023 by Ac Delvalle MD at [facility] Screw N/A: Spine Lumbar NEW AGE MEDICAL [id number] / / Graft Bone Ic Chambers [facility]cc [facility] [id number] Implanted:Qty: 1 on 10/30/2018 by Nabeel Guallpa MD at [facility] N/A: Back [facility] [facility] 09/16/2020 [id number] / / Pro Lift Expandable Adjustable Spacer Implanted:Qty: 1 on 10/30/2018 by Nabeel Guallpa MD at [facility] N/A: Back [employer] 01/03/2021 [id number] [id number] / / [id number] Prolift Expandable Adustable Spacer System Implanted:Qty: 1 on 10/30/2018 by Nabeel Guallpa MD at [facility] N/A: Back [employer] 02/26/2021 [id number] 210P / / [id number] K Wire Implanted:Qty: 6 on 10/30/2018 by Nabeel Guallpa MD at [facility] N/A: Back [employer] [id number] / / Nxg Head Implanted:Qty: 11 on 10/16/2023 by Ac Delvalle MD at [facility] N/A: Spine Lumbar NEW AGE MEDICAL [id number] / / Explanted Type Area Racquet Maker Device Identifier Shelf Expiration Date Model / Serial / Lot Medhat Depuy Spine 65mm - [id number] Implanted:Qty: 2 on 10/30/2018 by Nabeel Guallpa MD at [facility] Explanted:Qty: 2 on 10/16/2023 by Ac Delvalle MD at [facility] Medhat N/A: Back [employer] 10/31/2019 [id number] / / NA 7.5 X 45 Mm Screw Explanted:Qty: 1 on 10/16/2023 by Ac Delvalle MD at [facility] Screw N/A: Spine Lumbar [facility] [id number] / / Xtab Viper Depuy 7 X 45 - [id number] Implanted:Qty: 6 on 10/30/2018 by Nabeel Guallpa MD at [facility] Explanted:Qty: 6 on 10/16/2023 by Ac Delvalle MD at [facility] N/A: Back [employer] [id number] / / Screw Set Depuy - [id number] Implanted:Qty: 6 on 10/30/2018 by Nabeel Guallpa MD at [facility] Explanted:Qty: 6 on 10/16/2023 by Ac Delvalle MD at [facility] N/A: Back [employer] [id number] / / Nxg Head Explanted:Qty: 1 on 10/16/2023 by Ac Delvalle MD at [facility] N/A: Spine Lumbar NEW AGE MEDICAL [id number] [...] Documents on File Type Date Recorded Patient Die Maker Expl anation Advance Directives and Living Will 10/25/2023 11:31 AM 04/20/1998 LIVING [place] DECLARATION * Full Code (Latest Code Status on File) Date Activated Date Inactivated Comments 10/16/2023 3:58 PM 10/18/2023 2:16 PM * Full Code Date Activated Date Inactivated Comments 10/31/2018 9:19 AM 10/31/2018 4:59 PM Care Teams Hot Head Machine Operator Relationship Specialty Start Date End Date Saravanan Espinoza PA [address] [place] [address] PCP - General PHYSICIAN UTILITY BILL COLLECTION CLERK 10/25/18 Ac Delvalle MD [address] [place] [address] Surgeon NEUROLOGICAL SURGERY 10/02/23
== END 2024-07-18 11:48 | disposition home or self-care (01) ==
PROVIDERS: PCP Nurse Practitioner Adult Health; Visit Provider Internal Medicine Cardiovascular Disease
DX: R60.0 Localized edema (principal)
CPT/HCPCS: 93971

== ENCOUNTER 2024-09-03 11:33 | Outpatient (CLI) | payer MEDICARE, MEDICAID, SELFPAY ==
[2024-09-03 21:32] LABS: Alanine Aminotransferase 43 U/L (6-35); Albumin Level 4.5 g/dL (3.5-5.1); Alkaline Phosphatase 122 U/L (38-126); Anion Gap 9 mmol/L (4-12); Aspartate Amino Transferase 62 U/L (14-36); Bilirubin,Total 0.6 mg/dL (0.2-1.3); Blood Urea Nitrogen 26 mg/dL (7-17); Calcium 9.8 mg/dL (8.4-10.2); Carbon Dioxide 24 mmol/L (22-30); Chloride 112 mmol/L (98-107); Cholesterol 265 mg/dL (0-200); Estimated Glomerular Filt Rate 48; Glucose 121 mg/dL (65-110); HDL Direct 62 mg/dL; Magnesium 2.1 mg/dL (1.6-2.3); Potassium 4.2 mmol/L (3.4-5.0); Sodium 145 mmol/L (137-145); Total Protein 7.6 g/dL (6.3-8.2); Triglycerides 198 mg/dL (<150)
[2024-09-03 21:33] LABS: Vitamin D 25 Hydroxy 31.8 ng/mL
[2024-09-03 21:48] LABS: LDL Cholesterol Direct 151 mg/dL
[2024-09-04 00:20] LABS: Basophils Absolute Auto 0.1 K/mm3 (0.0-0.1); Basophils Percent Auto 0.7 % (0.2-1.2); Eosinophils Absolute Auto 0.4 K/mm3 (0-0.3); Eosinophils Percent Auto 5.7 % (0-4.4); Hematocrit 44.5 % (37.0-47.0); Hemoglobin 13.3 g/dL (12.0-15.0); Immature Granulocyte Absolute 0.02 K/mm3 (0.00-0.031); Immature Granulocyte Percent A 0.3 % (0-0.5); Lymphocytes Absolute Auto 2.02 K/mm3 (0.9-3.2); Lymphocytes Percent Auto 30.3 % (18.3-44.2); Mean Corpuscular HGB Conc 29.9 g/dl (32-36); Mean Corpuscular Hemoglobin 27.1 pg (26-34); Mean Corpuscular Volume 90.8 fl (80-100); Mean Platelet Volume 10.1 fl (7.4-10.4); Monocytes Absolute Auto 0.6 K/mm3 (0.1-0.6); Monocytes Percent Auto 8.4 % (2.6-8.5); Neutrophils Absolute Auto 3.6 K/mm3 (1.3-6.7); Neutrophils Percent Auto 54.6 % (45.5-73.1); Platelet Count Result 296 k/mm3 (150-375); Red Cell Distribution Width 16.5 % (11.5-14.5); White Blood Count 6.7 K/mm3 (4.5-10.0)
[2024-09-04 00:44] LABS: Anisocytosis 1+; Large Platelets Present; Ovalocytes 1+; Platelet Estimate Adequate (Adequate)
[2024-09-04 00:45] LABS: Burr Cells 1+; Schistocytes None Seen
== END 2024-09-03 11:34 | disposition home or self-care (01) ==
PROVIDERS: PCP Nurse Practitioner Adult Health; Visit Provider Nurse Practitioner Adult Health
DX: I10 Essential (primary) hypertension (principal); E55.9 Vitamin D deficiency, unspecified
CPT/HCPCS: 36415; 80053; 80061; 82306; 83735; 85025

== ENCOUNTER 2024-09-08 14:20 | Outpatient (CLI) | payer MEDICARE, MEDICAID, SELFPAY ==
[2024-09-08 22:51] LABS: Iron 85 ug/dL (37-170)
[2024-09-09 03:08] LABS: Percent Iron Saturation 16 % (20-50)
== END 2024-09-08 14:21 | disposition home or self-care (01) ==
LOC: ANHBWCLAB 14:21
PROVIDERS: PCP Nurse Practitioner Adult Health; Visit Provider Nurse Practitioner Adult Health
DX: R79.89 Other specified abnormal findings of blood chemistry (principal)
CPT/HCPCS: 36415; 82728; 83540; 83550

== ENCOUNTER 2024-12-10 09:18 | Outpatient (CLI) | payer MEDICARE, MEDICAID, SELFPAY ==
--- NOTE | ~2024-12-10 | NM_ITS ---
EXAMINATION: NM meagan stress w perfusion DATE: 12/10/2024 11:18 INDICATION: Encounter for preprocedural cardiovascular exam. TECHNIQUE: Rest images were obtained following intravenous administration of 11.22 mCi Tc99m tetrofosmin (Myoview). The patient was infused intravenously with Lexiscan (regadenoson). Then, 34.4 mCi Tc99m tetrofosmin (Myoview) was administered intravenously, and stress images were obtained. Data was rec onstructed into short axis and horizontal and vertical long axis SPECT images. Gated SPECT images were also obtained. COMPARISON: None. FINDINGS: There is a small, mild, fixed perfusion defect involving mid inferior wall of left ventricle, consistent with infarct. No reversible component to suggest ischemia. There is no segmental wall motion abnormality. Left ventricular ejection fraction measures >70%. IMPRESSION: 1. 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 2. Normal left ventricular ejection fraction measuring >70%. Reviewed, dictated and finalized at location E.
--- NOTE | 2024-12-10 10:05 | EST_ITS ---
Patient Info Name: Kala Duron Age: 69 years : 1955 Gender: Female Ht: 64 in Wt: 210 lbs BSA: 2.12 m2 HR: 45 bpm BP: 124 / 68 mmHg Exam Date: 12/10/2024 10:05 AM Patient Status: O Admit Date: 12/10/2024 Exam Type: CA stress meagan w NM A regadenoson stress test was performed. Staff Referring Physician: Bj Welsh DO Attending Provider: Bj Welsh DO Exercise Technologist: Nicole Coles Exercise Physician: Bj Welsh DO Summary 1. 1. Negative lexiscan stress test for ischemic ST changes by ECG criteria. 2. 2. Stable hemodynamics throughout the test. 3. 3. Nuclear scan to follow and will be reported separately. Please correlate with it. 4. 4. Patient informed of the above results. Protocol: Lexiscan Stress ECG Details Stage: REST Duration (min): 1 min : 23 sec HR (bpm): 47 SBP (mmHg): 124 DBP (mmHg): 68 Stage: REST Duration (min): 10 min : 13 sec HR (bpm): 48 SBP (mmHg): 124 DBP (mmHg): 68 Stage: STAGE 1 Duration (min): 0 min : 59 sec HR (bpm): 54 SBP (mmHg): 123 DBP (mmHg): 78 Stage: RECOVERY Duration (min): 1 min : 0 sec HR (bpm): 66 SBP (mmHg): 123 DBP (mmHg): 78 Stage: RECOVERY Duration (min): 2 min : 0 sec HR (bpm): 66 SBP (mmHg): 123 DBP (mmHg): 78 Stage: RECOVERY Duration (min): 3 min : 0 sec HR (bpm): 67 SBP (mmHg): 131 DBP (mmHg): 75 Stage: RECOVERY Duration (min): 4 min : 0 sec HR (bpm): 59 SBP (mmHg): 131 DBP (mmHg): 75 Stage: RECOVERY Duration (min): 5 min : 0 sec HR (bpm): 66 SBP (mmHg): 132 DBP (mmHg): 75 Stage: RECOVERY Duration (min): 5 min : 3 sec HR (bpm): 65 SBP (mmHg): 132 DBP (mmHg): 75 Rest HR: 48 bpm Peak HR: 67 bpm Rest Sys BP: 124 mmHg Peak Sys BP: 132 mmHg Max Pred HR: 149 bpm % Max Pred HR: 45 % Target HR: 127 bpm Max RPP: 8,844 bpm*mmHg Termination Reason: Completed protocol Cardiac Symptoms: Shortness of breath Total Time: 1 min : 0 sec Rest Ravi BP: 68 mmHg Peak Ravi BP: 75 mmHg Total Dose: 0.4 mg Resting ECG Sinus bradycardia. Stress ECG No ST changes. Arrhythmias None. Report Signatures
== END 2024-12-10 09:19 | disposition home or self-care (01) ==
PROVIDERS: PCP Nurse Practitioner Adult Health; Visit Provider Internal Medicine Cardiovascular Disease
DX: Z01.810 Encounter for preprocedural cardiovascular examination (principal); I21.9 Acute myocardial infarction, unspecified
CPT/HCPCS: 78452; 93017; A9502; J2785

== ENCOUNTER 2024-12-18 14:14 | Outpatient (CLI) | payer MEDICARE, MEDICAID, SELFPAY ==
[2024-12-18 14:39] LABS: Hematocrit 38.8 % (35.0-42.0); Hemoglobin 14.1 g/dL (11.7-13.8)
[2024-12-18 14:57] LABS: Hemoglobin A1C 6.0 % (<5.7)
[2024-12-18 14:58] LABS: Albumin Level 4.4 g/dL (3.5-5.1)
[2024-12-18 15:01] LABS: Alanine Aminotransferase 33 U/L (6-35); Albumin Level 4.5 g/dL (3.5-5.1); Alkaline Phosphatase 81 U/L (38-126); Anion Gap 10 mmol/L (4-12); Aspartate Amino Transferase 40 U/L (14-36); Bilirubin,Total 0.6 mg/dL (0.2-1.3); Blood Urea Nitrogen 23 mg/dL (7-17); Calcium 10.0 mg/dL (8.4-10.2); Carbon Dioxide 24 mmol/L (22-30); Chloride 112 mmol/L (98-107); Cholesterol 220 mg/dL (0-200); Estimated Glomerular Filt Rate 46; Glucose 96 mg/dL (65-110); HDL Direct 64 mg/dL; Osmolality Calculated 305 mOsm/kg (285-295); Potassium 4.2 mmol/L (3.4-5.0); Sodium 146 mmol/L (137-145); Total Protein 7.6 g/dL (6.3-8.2); Triglycerides 217 mg/dL (<150)
== END 2024-12-18 14:15 | disposition home or self-care (01) ==
LOC: CHSLAB 14:16
PROVIDERS: Orthopaedic Surgery; PCP Nurse Practitioner Adult Health; Visit Provider Internal Medicine Cardiovascular Disease
DX: R79.89 Other specified abnormal findings of blood chemistry (principal); E78.5 Hyperlipidemia, unspecified; Z79.899 Other long term (current) drug therapy
CPT/HCPCS: 36415; 80053; 80061; 80307; 82040; 83036; 85014; 85018

== ENCOUNTER 2025-01-12 13:29 | Outpatient (CLI) | payer MEDICARE, MEDICAID, SELFPAY ==
[2025-01-12 19:30] LABS: Albumin Level 4.1 g/dL (3.5-5.1); Anion Gap 5 mmol/L (4-12); Blood Urea Nitrogen 30 mg/dL (7-17); Calcium 9.4 mg/dL (8.4-10.2); Carbon Dioxide 29 mmol/L (22-30); Chloride 106 mmol/L (98-107); Estimated Glomerular Filt Rate 40; Glucose 105 mg/dL (65-110); Potassium 4.6 mmol/L (3.4-5.0); Sodium 140 mmol/L (137-145)
== END 2025-01-12 13:30 | disposition home or self-care (01) ==
LOC: ANHBWCLAB 13:30
PROVIDERS: PCP Nurse Practitioner Adult Health; Visit Provider Nurse Practitioner Adult Health
DX: N28.9 Disorder of kidney and ureter, unspecified (principal)
CPT/HCPCS: 36415; 80069

== ENCOUNTER 2025-02-23 07:49 | Outpatient (CLI) | payer MEDICARE, MEDICAID, SELFPAY ==
--- OUTSIDE RECORDS SUMMARY | 2025-02-23 08:00 | XMS_ITS | Encounter Summary ---
Author Organization [facility] Address Count includes the [facility] [place] [address] Care Team Providers Care Auto Apprentice Mechanic Name Role Phone Edelmira Cheatham Primary Care Provider [phone] Ac Delvalle MD Unavailable [phone] Encounter Details Date Type Department Care Team (Late st Contact Info) Description 01/28/2025 Hospital Orders Only [facility] [address] [facility] [place] [address] Velma Blandon MD [address] [place] [address] Social History Tobacco Use Types Packs/Day Years Used Date Smoking Tobacco: Former Cigarettes Smokeless Tobacco: Never Comments:social smoker quit 30yrs ago. 1 pack usually lasted a month Alcohol Use Standard Drinks/Week Comments Yes 0 (1 standard drink = 0.6 oz pur e alcohol) socially B1300 Health Literacy Answer Date Recor ded How often do you need to hav e someone help you when you read instructions, pamphlets, or other written material from your doctor or pharmacy? Rarely 10/16/2023 [facility] Utilities Answer Date Recorded In the past 12 months has e [employer], gas, oil, or water [employer] threatened to shut off services in your [...] and heating? Not hard at all 10/16/2023 [facility] Occupat ional Health - Occupational Stress [...] any time in the past 12 m onths, were you homeless or living in a group home (including now)? No 10/16/2023 Comments No Sex and Gender Information Value Date Recorded Sex Assigned at Female 10/01/2024 7:27 AM CDT Legal Sex Female 6:08 PM CDT Gender Identity Not on file Sexual Orientation Not on file documented as of this encounter Functional Status * Are you deaf or do you have serious difficulty hearing Answer Date of Assessment Author Status No 10/16/2023 4:06 PM Doreen Leal RN Active * Are you blind or do you have serious difficulty seeing, even when wearing glasses? Answer Date of Assessment Author Status No 10/16/2023 4:06 PM Doreen Leal RN Active * Do you have serious difficulty walking or climbing stairs? Answer Date of Assessment Author Status No 10/16/2023 4:06 PM Doreen Leal RN Active * Do you have difficulty dressing or bathing? Answer Date of Assessment Author Status No 10/16/2023 4:06 PM Doreen Leal RN Active * Because of a physical, mental, or emotional condition, do you have difficulty doing errands alone such as visiting a doctor's office or shopping? Answer Date of Assessment Author Status No 10/16/2023 4:06 PM Doreen Leal RN Active documented as of this encounter Mental Status * Because of a physical, mental, or emotional condition, do you have serious difficulty concentrating, remembering, or making decisions? Answer Entry Date Author Status No 10/16/2023 4:06 PM Doreen Leal RN Active documented in this encounter Plan of Treatment Not on file documented as of this encounter Goals Goal Patient Goal Type Associated Problems Recent Progress Patient-Stated? Author Family - family caregiver with be involved in care transitions and discharge planning Lifestyle No Balwinder Simons RN documented as of this encounter Visit Diagnoses Not on filedocumented in this encounter Care Teams Auto Apprentice Mechanic Relationship Specialty Start Date End Date Edelmira Cheatham PA [address] [place] [address] PCP - General PHYSICIAN OPTOMETRY TEACHER 10/25/18 Ac Delvalle MD [address] [place] [address] Surgeon NEUROLOGICAL SURGERY 10/02/23 documented as of this encounter
--- OUTSIDE RECORDS SUMMARY | 2025-02-23 08:00 | XMS_ITS | Clinical Summary ---
Author Organization [facility] Address Pending sale to [facility] [place] [address] Care Team Providers Care Video Manager Name Role Phone Saravanan Espinoza Primary Care Provider [phone] Ac Delvalle MD Unavailable [phone] Allergies Active Allergy Reactions Criticality Noted Date Comments Atorvastatin Hives,Myalgias 09/03/2015 depression Niacin Hives,Myalgias Low 09/03/2015 Statins Other (see comment) 09/09/2024 Rash; depressions; ache all over per patient Sulfa Antibiotics Hives 10/28/2018 Tramadol Leg Pain,Other (see comment) 10/16/2023 lightheadedness Medications atenolol 50 MG tablet Take 1 tablet (50 mg total) by mouth every morning. Blood pressure 04/20/200 9 Active verapamil 120 MG tablet Take 2 tablets (240 mg total) by mouth daily. Active verapamil 120 MG tablet Take 1 tablet (120 mg total) by mouth every evening. Active aspirin 81 MG chewable tablet Chew 1 tablet (81 mg total) by mouth daily. Active ibuprofen (MOTRIN) 600 MG tablet Take 1 tablet (600 mg total) by mouth 3 (three) times daily as needed. FOR PAIN 4 Active triamcinolone (KENALOG) 0.025 % cream apply one application topically daily 5 Active FEROSUL 325 (65 Fe) MG tablet Take 1 tablet (325 mg total) by mouth daily. 5 Active rOPINIRole (REQUIP) 1 MG tablet Take 1 tablet (1 mg total) by mouth 2 (two) times daily. Active Active Problems Problem Noted Date Diagnosed Date Pain in left knee 07/03/2024 Lumbar stenosis with neurogenic claudication Spinal stenosis 04/06/2023 Bilateral primary osteoarthritis of knee 021 Pain in right knee 06/02/2020 Unilateral primary osteoarthritis, right knee S/P total knee arthroplasty, right 06/02/2020 Low back pain 10/30/2018 Encounters Date Type Department Care Team Description 02/04/2025 9:49 AM DIRECTOR TALENT MANAGEMENT - 02/04/2025 9:53 AM [facility] Hospital Encounter [place] [address] [place] [address] Velma Blandon MD Discharge Disposition: Home or Self Care (Routine Discharge) 02/04/2025 Travel 02/04/2025 Hospital Orders Only [place] [facility] [address] [place] [address] Velma Blandon MD 01/28/2025 Hospital Orders Only [place] [facility] [address] [place] [address] Velma Blandon MD from Last 3 Months Family History Medical [...] from your doctor or pharmacy? Rarely 10/16/2023 [facility] Utilities Answer Date Recorded In the past 12 months has th e [employer], gas, oil, or water company threatened to shut off services in your [...] and heating? Not hard at all 10/16/2023 [facility] of Occupat ional Health - Occupational Stress [...] any time in the past 12 m [facility], were you homeless or living in a penitentiary (including now)? No 10/16/2023 Comments No Sex and Gender Information Value Date Recorded Sex Assigned at Female 10/01/2024 7:27 AM CDT Legal Sex Female 6:08 PM CDT Gender Identity Not on file Sexual Orientation Not on file Last Filed Vital Signs Vital Sign Reading Time Taken Comments Blood Pressure 127/64 10/01/2024 9:06 AM CDT Pulse 52 10/01/2024 9:06 AM CDT Temperature 36 C (96.8 F) 10/01/2024 9:06 AM CDT Respiratory Rate 16 10/01/2024 9:06 AM CDT Oxygen Saturation 97% 10/01/2024 9:06 AM CDT Inhaled Oxygen Concentration - - Weight 95.3 kg (210 lb) 09/25/2024 7:48 AM CDT Height 162.6 cm (5' 4) 09/25/2024 7:48 AM CDT Body Mass Index 36.05 09/25/2024 7:48 AM CDT Plan of Treatment Health Maintenance Due Date Last Done Comments Colorectal Cancer Screening Colonoscopy (10 Years) 1953 Hepatitis C 1971 DTaP, Tdap and Td Vaccines ( 1 - Tdap) 11/16/2000 11/15/2000 Zoster Vaccines (1 of 2) 2003 Annual Medicare Wellness Visit 2018 Dexa Scan (General) 2018 Pneumococcal Vaccine: 50+ Years (2 of 2 - PCV) 01/14/2021 01/15/2020 COVID-19 Vaccine (4 - 2024-2 6 season) 2024 03/05/2021, 07/10/2020, 06/12/2020 Influenza Adult (#1) 2024 Mammogram Screening 08/08/2025 08/09/2023, 08/30/2020 RSV Immunization or 60+ Years (1 - 1-dose 75+ series) 2028 Hepatitis A Vaccines Aged Out No long er eligible based on patient's age to complete this topic Meningococcal B Vaccine Aged Out No l [...] discharge planning Lifestyle No Balwinder Simons RN Medical Devices Implanted Type Area Clinical Counselor Device Identifier Shelf Expiration Date Model / Serial / Lot Forza Ti Spacer System Intervertebral Body Fusion Spinal Device Implanted:Qty: 2 on 10/16/2023 by Ac Delvalle MD at [facility] Cage N/A: Spine Lumbar ORTHOFIX 09/07/2025 38-2011S P / / 012 Forza Ti Spacer System Intervertebral Body Fusion Spinal Device Implanted:Qty: 2 on 10/16/2023 by Ac Delvalle MD at [facility] Cage N/A: Spine Lumbar ORTHOFIX 09/08/2025 38-2008S P / / 002 Iol Jamie Cna0t0 - [id number] Implanted:Qty: 1 on 09/24/2024 by Velma Blandon MD at [facility] Lens Right: Eye [employer] [id number] 04/09/2027 CNA0T0 / [id number] / Iol Jamie Cna0t0 - [id number] Implanted:Qty: 1 on 10/01/2024 by Velma Blandon MD at [facility] Lens Left: Eye [employer] [id number] 03/12/2027 CNA0T0 / [id number] / [id number] 140 Mm Medhat Implanted:Qty: 2 on 10/16/2023 by Ac Delvalle MD at [facility] Medhat N/A: Spine Lumbar NEW AGE MEDICAL 52-2140 / / 65 X 50 Mm Screw Implanted:Qty: 4 on 10/16/2023 by Ac Delvalle MD at [facility] Screw N/A: Spine Lumbar NEW AGE MEDICAL 44-5650 / / Set Screw Implanted:Qty: 11 on 10/16/2023 by Ac Delvalle MD at [facility] Screw N/A: Spine Lumbar NEW AGE MEDICAL 36-2001 / / 7.5 X 45 Mm Screw Implanted:Qty: 5 on 10/16/2023 by Ac Delvalle MD at [facility] Screw N/A: Spine Lumbar NEW AGE MEDICAL 44-5745 / / 8.5 X 85 Mm Screw Implanted:Qty: 1 on 10/16/2023 by Ac Delvalle MD at [facility] Screw N/A: Spine Lumbar NEW AGE MEDICAL 77-8885 / / 8.5 X 75 Mm Screw Implanted:Qty: 1 on 10/16/2023 by Ac Delvalle MD at [facility] Screw N/A: Spine Lumbar NEW AGE MEDICAL 77-8875 / / Graft Bone Ic Chambers 15cc [facility] - [id number] Implanted:Qty: 1 on 10/30/2018 by Nabeel Guallpa MD at [facility] N/A: Back [facility] 09/16/2020 [id number] / / Pro Lift Expandable Adjustable Spacer Implanted:Qty: 1 on 10/30/2018 by Nabeel Guallpa MD at [facility] N/A: Back [employer] 01/03/2021 58-1228- 1210P / / IO22 Prolift Expandable Adustable Spacer System Implanted:Qty: 1 on 10/30/2018 by Nabeel Guallpa MD at [facility] N/A: Back LIF[employer]INE 02/26/2021 58-1228- 1210P / / [id number] K Wire Implanted:Qty: 6 on 10/30/2018 by Nabeel Guallpa MD at [facility] N/A: Back LIF[employer]INE 2867-05- 200 / / Nxg Head Implanted:Qty: 11 on 10/16/2023 by Ac Delvalle MD at [facility] N/A: Spine Lumbar NEW AGE MEDICAL 34 / / Explanted Type Area Clinical Counselor Device Identifier Shelf Expiration Date Model / Serial / Lot Medhat Depuy Spine 65mm - [id number] Implanted:Qty: 2 on 10/30/2018 by Nabeel Guallpa MD at [facility] Explanted:Qty: 2 on 10/16/2023 by Ac Delvalle MD at [facility] Medhat N/A: Back [employer] 10/31/2019 1867-88-065 / / NA 7.5 X 45 Mm Screw Explanted:Qty: 1 on 10/16/2023 by Ac Delvalle MD at [facility] Screw N/A: Spine Lumbar NEW AGE MEDICAL 44-5745 / / Xtab Viper Depuy 7 X 45 - [id number] Implanted:Qty: 6 on 10/30/2018 by Nabeel Guallpa MD at [facility] Explanted:Qty: 6 on 10/16/2023 by Ac Delvalle MD at [facility] N/A: Back [employer] [id number] / / Screw Set Depuy - [id number] Implanted:Qty: 6 on 10/30/2018 by Nabeel Guallpa MD at [facility] Explanted:Qty: 6 on 10/16/2023 by Ac Delvalle MD at [facility] N/A: Back [employer] [id number] / / Nxg Head Explanted:Qty: 1 on 10/16/2023 by Ac Delvalle MD at [facility] N/A: Spine Lumbar NEW AGE MEDICAL 34 / / Procedures Procedure Name Priority Date/Time [...] Recently Relevant to Health Maintenance Insurance AETNA MEDICARE MEDICAID Advance Directives Documents on File Type Date Recorded Patient Casino Cage Manager Expl anation Advance Directives and Living Will 10/25/2023 11:31 AM 04/20/1998 [place] DECLARATION * Full Code (Latest Code Status on File) Date Activated Date Inactivated Comments 10/16/2023 3:58 PM 10/18/2023 2:16 PM * Full Code Date Activated Date Inactivated Comments 10/31/2018 9:19 AM 10/31/2018 4:59 PM Care Teams Video Manager Relationship Specialty Start Date End Date Saravanan Espinoza PA [address] [place] [address] PCP - General PHYSICIAN ADVERTISING PRODUCTION MANAGER 10/25/18 Ac Delvalle MD [address] [place] [address] Surgeon NEUROLOGICAL SURGERY 10/02/23
--- OUTSIDE RECORDS SUMMARY | 2025-02-23 08:00 | XMS_ITS | Encounter Summary ---
Author Organization [facility] Address [facility]ly [facility] [place] [address] Care Team Providers Care Utility Worker Name Role Phone Edelmira Cheatham Primary Care Provider [phone] Ac Delvalle MD Unavailable [phone] Encounter Details Date Type Department Care Team (Late st Contact Info) Description 02/04/2025 Hospital Orders Only [facility] [address] [place] [address] Velma Blandon MD [address] [place] [address] Social History Tobacco Use Types [...] from your doctor or pharmacy? Rarely 10/16/2023 [facility] Utilities Answer Date Recorded In the past 12 months has e [employer], gas, oil, or water [employer] threatened to shut off services in your [...] and heating? Not hard at all 10/16/[address] [facility] [place] of Occupat ional Health - Occupational Stress [...] were you homeless or living in a halfway (including now)? No 10/16/2023 Comments No Sex [...] on filedocumented in this encounter Care Teams Utility Worker Relationship Specialty Start Date End Date Edelmira Cheatham PA [address] [place] [address] PCP - General PHYSICIAN SHEETER HELPER 10/25/18 Ac Delvalle MD [address] [place] [address] Surgeon NEUROLOGICAL SURGERY 10/02/23 documented as of this encounter
--- OUTSIDE RECORDS SUMMARY | 2025-02-23 08:00 | XMS_ITS | Encounter Summary ---
Author Organization [facility] Address [facility] [place] [address] Care Team Providers Care Hangar Attendant Name Role Phone Edelmira Cheatham Primary Care Provider [phone] Ac Delvalle MD Unavailable [phone] Encounter Details Date Type Department Care Team ([facility] Contact Info) Description 06/09/2017 Abstract [facility] CONVERSION [address] [place], [place] [address] , Generic ConversionMD Social History Tobacco Use [...] Rule Out 05/28/2020 05/28/2020 05/30/2020 8:06 AM FOREST PATHOLOGY PROFESSOR documented as of this encounter Care Teams Hangar Attendant Relationship Specialty Start Date End Date Edelmira Cheatham PA [address] [place] [address] PCP - General PHYSICIAN BILLING AND INSURANCE COORDINATOR 10/25/18 Ac Delvalle MD [address] [place] [address] Surgeon NEUROLOGICAL SURGERY 10/02/23 documented as of this encounter
[2025-02-23 10:32] LABS: INR 1.0; Prothrombin Time 12.9 Seconds (11.1-14.7)
[2025-02-23 10:33] LABS: Partial Thromboplastin Time 23.0 Seconds (22.3-36.8)
[2025-02-23 10:44] LABS: Albumin Level 4.3 g/dL (3.5-5.1)
[2025-02-23 11:08] LABS: Hematocrit 39.8 % (37.0-47.0); Hemoglobin 13.1 g/dL (12.0-15.0); Immature Granulocyte Percent A 0.7 % (0-0.5); Lymphocytes Absolute Auto 2.17 K/mm3 (0.9-3.2); Mean Corpuscular HGB Conc 32.9 g/dl (32-36); Mean Corpuscular Hemoglobin 30.9 pg (26-34); Mean Corpuscular Volume 93.9 fl (80-100); Nucleated Red Blood Cells Absolute Auto 0.000 K/mm3 (0.0-0.012); Nucleated Red Blood Cells Perc 0.0 % (0.0-0.2); Platelet Count Result 314 k/mm3 (150-375); Red Blood Count 4.24 M/mm3 (4.2-5.4); White Blood Count 7.5 K/mm3 (4.5-10.0)
[2025-02-23 11:21] LABS: Anion Gap 5 mmol/L (4-12); Blood Urea Nitrogen 29 mg/dL (7-17); Calcium 9.7 mg/dL (8.4-10.2); Carbon Dioxide 27 mmol/L (22-30); Chloride 109 mmol/L (98-107); Estimated Glomerular Filt Rate 46; Glucose 99 mg/dL (65-110); Potassium 5.5 mmol/L (3.4-5.0); Sodium 141 mmol/L (137-145)
[2025-02-23 11:30] LABS: MRSA (PCR) NOT DETECTED (NOT DETECTE)
== END 2025-02-23 07:50 | disposition home or self-care (01) ==
LOC: ANHSURGERY 07:55
PROVIDERS: Anesthesiology; PCP Nurse Practitioner Adult Health; Visit Provider Orthopaedic Surgery
DX: M17.12 Unilateral primary osteoarthritis, left knee (principal); I12.9 Hypertensive chronic kidney disease with stage 1 through stage 4 chronic kidney disease, or unspecified chronic kidney disease; N18.9 Chronic kidney disease, unspecified; Z01.818 Encounter for other preprocedural examination
CPT/HCPCS: 36415; 80048; 80307; 82040; 85025; 85610; 85730; 87641

== ENCOUNTER 2025-03-17 03:23 | Day surgery (SDC) | payer MEDICARE, MEDICAID, SELFPAY ==
--- NOTE | 2025-02-23 07:54 | PC.NURSE ---
[facility] has started construction of its new state of the art ER which will open Spring 2026. With this, we anticipate parking may be a challenge for some our surgical patients and families. Parking spaces are limited but are available for all Surgical, obstetrics, and ER patients sharing this lot. If you arrive and find you are having a hard time finding a parking space, please note that we understand the challenges, please drive around the hospital and park near Hospital Entrance 1. When you enter this entrance, you can ask a volunteer to direct or take you back to the surgical waiting area to check in. We appreciate everyone?s understanding of these expected challenges while we build for your future. Report to the Outpatient Waiting Room, entrance under the green pavilion located off [address], at time _6 am on date 03/17/25 . Planned Procedure Time: __7:30 am .? Time changes happen often and if your time is changed the preop area will call you the afternoon before. - You and your visitor will be asked to self-screen and do not enter if you have any COVID symptoms. Please call surgeon if you need to reschedule. - A mask is optional within the hospital at this time. Patients may have clear liquids (water, carbonated beverages, clear teas, apple juice) until 3 hours prior to surgery ( 4:30 am) with a maximum of 20 ounces. - No food from midnight until time of surgery and no smoking, or chewing tobacco (or any form of nicotine). No chewing gum, candy or mints. - Take only the following medications with a SIP of water on the morning of surgery: ___ATENOLOL, DO NOT STOP ANY OF YOUR OTHER PRESCRIPTION MEDICATIONS PRIOR TO SURGERY EXCEPT THE FOLLOWING Hold all vitamins and supplements for 3 days per anesthesiologist.LAST DOSE 03/13/25 Medications to discontinue per physician ___ASPIRIN AND IBUPROFEN HOLD 7 DAYS PRE OP PER DR HINES Date to take last dose__03/09/25 Please no make-up, nail thai, hairspray, perfume, deodorant, or body powder the day of surgery.? No jewelry (including any body piercings) or valuables the day of surgery, leave them at home.? Please take a shower or bath the night before, or the morning of, surgery with an antibacterial soap.? Wear comfortable, loose fitting clothing.? Children are encouraged to wear pajamas. - Jewelry must be removed prior to entering the operating room.? Rings and piercings that are not removed may be cut off. - The hospital will not accept responsibility for valuables.? - Please leave all valuables, including medications, at home the day of surgery. If you are going home after surgery, a licensed cdl flatbed truck driver must drive you home.? - NO public transportation without another adult if you receive anesthesia. - We recommend that an adult stay with you for 24 hours following discharge. - We also recommend that you do not drive, make important decision, drink alcoholic beverages, or take any drugs that were not prescribed by your health care provider for at least 24 hours after your discharge time. For Pediatric surgeries, we recommend two adults accompany the child home. Follow any additional instructions given to you from your surgeon. VERBAL AND WRITTEN instructions given to __PATIENT and asked if any additional questions and then verbalized understanding. Patient advised to call surgeon office or pre surgery nurse liaison [phone] if any additional questions.
[2025-02-23 08:02] VITALS: BMI 37.5
[2025-02-23 08:56] VITALS: BP 164/88; PULSE 71; RESP 18; TEMP 36.8; O2SAT 98
[2025-03-17] VITALS (15 sets, daily range): BP systolic 102–150; BP diastolic 60–74; PULSE 63–83; RESP 10–18; TEMP 36–36.7; O2SAT 92–100
--- NOTE | ~2025-03-17 | XR_ITS ---
EXAMINATION: [id number] DATE: 03/17/2025 10:08 INDICATION: Postoperative evaluation following left total knee arthroplasty. TECHNIQUE: Anteroposterior and lateral views of the left knee were obtained. COMPARISON: None. FINDINGS: Left total knee arthroplasty with patellar resurfacing appears well seated and in near anatomic alignment. No fractures identified. Expected postoperative subcutaneous and intra-articular gas. IMPRESSION: 1. Left total knee arthroplasty, negative for postoperative purposes. Reviewed, dictated and finalized at location A. [facility]
--- OUTSIDE RECORDS SUMMARY | 2025-03-17 03:28 | XMS_ITS | Clinical Summary ---
Author Organization [facility] Address [facility] [place] [address] Care Team Providers Care Retail Salesperson Name Role Phone Saravanan Espinoza Primary Care Provider [phone] Ac Delvalle MD Unavailable [phone] Allergies Active Allergy Reactions Criticality Noted Date [...] Department Care Team Description 02/04/2025 9:49 AM PIPE FITTER SOFT COPPER - 02/04/2025 9:53 AM [facility] Hospital Encounter [facility] [address] [place] [address] Velma Blandon MD Discharge Disposition: Home or Self Care (Routine Discharge) 02/04/2025 Travel 02/04/2025 Hospital Orders Only [facility] [address] [place] [address] Velma Blandon MD 01/28/2025 Hospital Orders Only [facility] [address] [place] [address] Velma Blandon MD from Last 3 Months [...] from your doctor or pharmacy? Rarely 10/16/2023 [facility] Utilities Answer Date Recorded In the past 12 months has th e [employer], gas, oil, or water company threatened to [...] and heating? Not hard at all 10/16/2023 [facility] of Occupat ional Health - Occupational Stress [...] any time in the past 12 m [facility], were you homeless or living in a snf (including now)? No 10/16/2023 Comments No Sex [...] 09/25/2024 7:48 AM CDT Plan of Treatment Upcoming Encounters Date Type Department Care Team (Late st Contact Info) Description 03/31/2025 2:00 PM PIPE FITTER SOFT COPPER Appointment [facility] [address] [place] [address] Isaac Painter, PT [address] [place] [address] Health Maintenance Due Date Last Done Comments [...] Simons, RN Medical Devices Implanted Type Area Zoning Engineer Device Identifier Shelf Expiration Date Model / Serial / Lot Forza Ti Spacer System Intervertebral Body Fusion Spinal Device Implanted:Qty: 2 on 10/16/2023 by Ac Delvalle MD at [facility] Cage N/A: Spine Lumbar ORTHOFIX 09/07/2025 38-2012S P / / 012 Forza Ti Spacer System Intervertebral Body Fusion Spinal Device Implanted:Qty: 2 on 10/16/2023 by Ac Delvalle MD at [facility] Cage N/A: Spine Lumbar ORTHOFIX 09/08/2025 38-2009S P / / 002 Iol Jamie Cna0t0 - [id number] Implanted:Qty: 1 on 09/24/2024 by Velma Blandon MD at [facility] Lens Right: Eye [employer]AMIE - [employer]GICAL DIV [id number] 04/09/2027 CNA0T0 / [id number] / Iol Jamie Cna0t0 - [id number] Implanted:Qty: 1 on 10/01/2024 by Velma Blandon MD at [facility] Lens Left: Eye [employer] - [employer] [id number] 03/12/2027 CNA0T0 / [id number] / [id number] 140 Mm Medhat Implanted:Qty: 2 on 10/16/2023 by Ac Delvalle MD at [facility] Medhat N/A: Spine Lumbar NEW AGE MEDICAL 52-2140 / / 65 X 50 Mm Screw Implanted:Qty: 4 on 10/16/2023 by Ac Delvalle MD at [facility] Screw N/A: Spine Lumbar NEW AGE MEDICAL 44-5650 / / Set Screw Implanted:Qty: 11 on 10/16/2023 by Ac Delvalle MD at [facility] Screw N/A: Spine Lumbar NEW AGE MEDICAL 36-2001 / / 7.5 X 45 Mm Screw Implanted:Qty: 5 on 10/16/2023 by Ac Delvalle MD at [facility] Screw N/A: Spine Lumbar NEW AGE MEDICAL 44-5745 / / 8.5 X 85 Mm Screw Implanted:Qty: 1 on 10/16/2023 by Ac Delvalle MD at [facility] Screw N/A: Spine Lumbar NEW AGE MEDICAL 77-8885 / / 8.5 X 75 Mm Screw Implanted:Qty: 1 on 10/16/2023 by Ac Delvalle MD at [facility] Screw N/A: Spine Lumbar NEW AGE MEDICAL 77-8875 / / Graft Bone Ic Chambers 15cc [facility] - [id number] Implanted:Qty: 1 on 10/30/2018 by Nabeel Guallpa MD at [facility] N/A: Back [facility] 09/16/2020 [id number] / / Pro Lift Expandable Adjustable Spacer Implanted:Qty: 1 on 10/30/2018 by Nabeel Guallpa MD at [facility] N/A: Back LIF[employer]INE 01/03/2021 58-1228- 1210P / / IO22 Prolift Expandable Adustable Spacer System Implanted:Qty: 1 on 10/30/2018 by Nabeel Guallpa MD at [facility] N/A: Back LIFESPINE 02/26/2021 58-1228- 1210P / / [id number] K Wire Implanted:Qty: 6 on 10/30/2018 by Nabeel Guallpa MD at [facility] N/A: Back LIFESPINE 2867-05- 200 / / Nxg Head Implanted:Qty: 11 on 10/16/2023 by Ac Delvalle MD at [facility] N/A: Spine Lumbar NEW AGE MEDICAL 36-2101 / / Explanted Type Area Zoning Engineer Device Identifier Shelf Expiration Date Model / Serial / Lot Medhat Depuy Spine 65mm - [id number] Implanted:Qty: 2 on 10/30/2018 by Nabeel Guallpa MD at [facility] Explanted:Qty: 2 on 10/16/2023 by Ac Delvalle MD at [facility] Medhat N/A: Back DE[employer] 10/31/2019 1867-88-065 / / NA 7.5 X 45 Mm Screw Explanted:Qty: 1 on 10/16/2023 by Ac Delvalle MD at [facility] Screw N/A: Spine Lumbar NEW AGE MEDICAL 44-5745 / / Xtab Viper Depuy 7 X 45 - [id number] Implanted:Qty: 6 on 10/30/2018 by Nabeel Guallpa MD at [facility] Explanted:Qty: 6 on 10/16/2023 by Ac Delvalle MD at [facility] N/A: Back [employer] - [employer] [id number] / / Screw Set Depuy - [id number] Implanted:Qty: 6 on 10/30/2018 by Nabeel Guallpa MD at [facility] Explanted:Qty: 6 on 10/16/2023 by Ac Delvalle MD at [facility] N/A: Back [employer] - [employer] [id number] / / Nxg Head Explanted:Qty: 1 on 10/16/2023 by Ac eDlvalle MD at [facility] N/A: Spine Lumbar NEW AGE MEDICAL 36-2101 [...] dimensionally demonstrated in either breast. Saravanan Espinoza PA MAMMO Final Result from Last 3 Months or Most Recently Relevant to Health Maintenance Insurance AETNA MEDICARE MEDICAID Advance Directives Documents on File Type Date Recorded Patient Melt Helper Expl anation Advance Directives and Living Will 10/25/2023 11:31 AM 04/20/1998 [place] DECLAR[place] * Full Code (Latest Code Status on File) Date Activated Date Inactivated Comments 10/16/2023 3:58 PM 10/18/2023 2:16 PM * Full Code Date Activated Date Inactivated Comments 10/31/2018 9:19 AM 10/31/2018 4:59 PM Care Teams Retail Salesperson Relationship Specialty Start Date End Date Saravanan Espinoza PA [address] [place] [address] PCP - General PHYSICIAN BUSINESS SYSTEMS CONSULTANT 10/25/18 Ac Delvalle MD [address] [place] [address] Surgeon NEUROLOGICAL SURGERY 10/02/23
--- OUTSIDE RECORDS SUMMARY | 2025-03-17 03:29 | XMS_ITS | Encounter Summary ---
Author Organization [facility] Address [facility] [place] [address] Care Team Providers Care Mineral Industry Teacher Name Role Phone Edelmira Cheatham Primary Care Provider [phone] Ac Delvalle MD Unavailable [phone] Encounter Details Date Type Department Care Team (Late st Contact Info) Description 02/04/2025 Hospital Orders Only [facility] [address] [facility] [place] [address] Velma Blandon MD [address] [place] [address] Social History Tobacco Use Types [...] In the past 12 months has e [employer], gas, oil, or water [employer] threatened to shut off services in your [...] and heating? Not hard at all 10/16/2023 [facility] [place] of Occupat ional Health - Occupational Stress [...] were you homeless or living in a half-way (including now)? No 10/16/2023 Comments No Sex [...] Assessment Author Status No 10/16/2023 4:06 PM CH[facility] Doreen Hernandez RN Active * Are you blind or [...] documented in this encounter Plan of Treatment Upcoming Encounters Date Type Department Care Team (Late st Contact Info) Description 03/31/2025 2:00 PM VIAL GAUGER Appointment [facility] [address] [place] [address] Isaac Painter, PT [address] [place] [address] documented as of this encounter Goals Goal Patient Goal Type Associated Problems Recent Progress Patient-Stated? Author Family - family caregiver with be involved in care transitions and discharge planning Lifestyle No Balwinder Simons, RN documented as of this encounter Visit Diagnoses Not on filedocumented in this encounter Care Teams Mineral Industry Teacher Relationship Specialty Start Date End Date Edelmira Cheatham PA [address] [place] [address] PCP - General PHYSICIAN SALES AMBASSADOR 10/25/18 Ac Delvalle MD [address] [place] [address] Surgeon NEUROLOGICAL SURGERY 10/02/23 documented as of this encounter
--- OUTSIDE RECORDS SUMMARY | 2025-03-17 03:29 | XMS_ITS | Encounter Summary ---
Author Organization [facility] Address [facility] [place] [address] Care Team Providers Care Data Processing Systems Consultant Name Role Phone Edelmira Cheatham Primary Care Provider [phone] Ac Delvalle MD Unavailable [phone] Encounter Details Date Type Department Care Team (Late st Contact Info) Description 01/28/2025 Hospital Orders Only [facility] [address] [facility] [place] [address] Velma Blandon MD [address] [place] [address] Social History Tobacco Use Types [...] from your doctor or pharmacy? Rarely 10/16/2023 [facility] Utilities Answer Date Recorded In the past 12 months has e [employer], gas, oil, or water [employer] threatened to shut off services in your [...] and heating? Not hard at all 10/16/2023 [facility] [place] of Occupat ional Health - Occupational Stress [...] were you homeless or living in a [facility]cf[facility] (including now)? No 10/16/2023 Comments No Sex [...] Assessment Author Status No 10/16/2023 4:06 PM Doeren Leal RN Active * Because of a [...] st Contact Info) Description 03/31/2025 2:00 PM PIT AND AUXILIARIES SUPERVISOR Appointment [facility] [address] [place] [address] Isaac Painter, PT [address] [place] [address] documented as of this encounter Goals Goal Patient Goal Type Associated Problems Recent Progress Patient-Stated? Author Family - family caregiver with be involved in care transitions and discharge planning Lifestyle No Balwinder Simons, RN documented as of this encounter Visit Diagnoses Not on filedocumented in this encounter Care Teams Data Processing Systems Consultant Relationship Specialty Start Date End Date Edelmira Cheatham PA [address] [place] [address] PCP - General PHYSICIAN WASH DRILLER 10/25/18 Ac Delvalle MD [address] [place] [address] Surgeon NEUROLOGICAL SURGERY 10/02/23 documented as of this encounter
[2025-03-17] MEDS: TRANEXAMIC ACID 1,000MG/ISO100 1,000 MG/100 ML BAG 200 MG IVPB (06:30)
[2025-03-17] MEDS: ACETAMINOPHEN 500 MG TABLET 1000 MG PO (07:00)
--- NOTE | 2025-03-17 07:15 | WPDHPUPDATE1 ---
History and Physical Update Update Date/Time: 03/17/25 07:15 History and Physical has been reviewed, including an updated exam of the patient. There are NO changes in the patient's condition. Risks, benefits, and alternatives have been discussed and questions answered. Patient agrees to proceed with procedure.
--- NOTE | 2025-03-17 07:29 | WPDANESEPPF ---
Anes - Initial Pre Proc Eval Procedure: Operation Date: 03/17/25 07:30 Proposed Procedures p Left Total Knee Arthroplasty - Julien Louis MD Date/Time: 03/17/25 07:29 Surgeon: Julien Louis MD Pre Op Diagnosis: primary OA left knee Patient Data Age: 69 Gender: F Height: 1.6 m Weight: 93.8 kg Last Vital Signs Temp 36.7 C 03/17/25 07:00 Pulse 78 03/17/25 07:00 Resp 16 03/17/25 07:00 BP 138/68 03/17/25 07:00 Pulse Ox 100 03/17/25 07:00 O2 Del Method Room Air 03/17/25 07:00 Allergies Allergy/AdvReac Type Severity Reaction Status Date / Time fenofibrate Allergy Severe Leg cramps Verified 03/17/25 07:06 [id number]-[id number] Reductase Allergy rash, Verified 03/17/25 07:06 Inhibitor muscle pain Sulfa (Sulfonamide Allergy Hives Verified 03/17/25 07:06 Antibiotics) tolterodine (From Detrol) Allergy Chest Pain Verified 03/17/25 07:06 Home Medications ?Medication ?Instructions ?Recorded ?Confirmed ?Type atenolol 50 mg tablet 50 mg PO QAM 01/15/23 03/17/25 History ibuprofen 200 mg capsule 400 mg PO Q6H PRN Pain 01/15/23 03/17/25 History aspirin 81 mg tablet,delayed 81 mg PO DAILY 05/08/23 03/17/25 History release (Adult Low Dose Aspirin) cholecalciferol (vitamin D3) 25 25 mcg PO DAILY 01/31/24 03/17/25 History mcg (1,000 unit) capsule (Vitamin D3) fenofibrate 160 mg tablet 160 mg PO DAILY #30 tabs 10/30/24 03/17/25 Rx ropinirole 1 mg tablet See Rx Instructions .Route 12/03/24 03/17/25 Rx .COMPLEX #180 tabs losartan 50 mg tablet 50 mg PO DAILY #90 tabs 01/19/25 03/17/25 Rx magnesium carb,citrate,oxide 4 mg PO DAILY 01/19/25 03/17/25 History (Magnesium Complex) triamcinolone acetonide 0.025 % See Rx Instructions .Route 01/22/25 03/10/25 Rx topical cream .COMPLEX #15 grams djyqwbzu-mbvdrzpm-spwlq acid 240 1 tablet PO DAILY 02/02/25 03/17/25 History mcg-vit K1 150 mcg-herb 357 tablet (Alive Women's 50 Plus Ultra Multivitamin) rivaroxaban 10 mg tablet (Xarelto) 10 mg PO DAILY 30 days #30 tabs 02/23/25 03/10/25 Rx ferrous sulfate 325 mg (65 mg See Rx Instructions .Route 03/04/25 03/17/25 Rx iron) tablet (Iron (ferrous .COMPLEX #90 tabs sulfate)) oxycodone-acetaminophen 5 mg-325 1 - 2 tablet PO Q4-6H PRN pain #30 03/12/25 Rx mg tablet (Percocet) tabs prednisone 5 mg tablet 5 mg PO DAILY #21 tabs 03/12/25 Rx Laboratory Tests 03/17/25 06:30 Blood Type Pending Antibody Screen Pending Patient hx anesthesia problems: none Family hx anesthesia problems: none Results Review: All pre-operative results and documents have been reviewed as part of the pre-operative evaluation. [facility] Past Medical History Medical History Osteoporosis Closed fibular fracture Edema of left lower leg History of hypertension Surgical History Surgical History History of right knee joint replacement 2020 S/P lumbar fusion Family History Family History Mother Hypertension Diabetes mellitus Arthritis Cerebrovascular accident Father Cerebrovascular accident Social History Social History Social History: caffeine use Smoking packs per day: 0.02 Smoking cigarettes per day: 0.4 Years smoked: 2 Smoking pack-years: 0.04 Smoking status: Never smoker Tobacco type: cigarettes Smoking end date: 09/23/85 Additional smoking assessment comments: DENIES ANY FORM OF TOBACCO USE Alcohol intake: current Drinks per week: 4 Alcohol use details: WINE Substance use: never Substance use type: does not use Lack of Transportation: No Lack of Food: Never True Current Housing: I Have Housing Concerned About Future Housing: No Difficulty Paying Gas/Electric Bills: No Difficulty Paying for Meds: No Currently Unemployed: No Education: High School Diploma/GED Difficulty w/ Childcare or Family Care: No Living arrangements: with family Additional living arrangements comments: SUMEET Occupation/Education: retired Gender identity (if verbalized by the patient): Female Spiritual care concerns: No Anes - Eval Final PreProcedure Day of Procedure 03/17/25 07:29 Patient weight: obese Heart: regular rate and rhythm Lungs: clear to auscultation Airway: Mallampati scale class III Neurological: alert and oriented Last oral intake: >/= 8 hours ASA classification: III Emergent: no Anesthetic plan: proceed Anesthesia type and monitoring: general LMA and standard monitoring Results Review: All pre-operative results and documents have been reviewed as part of the pre-operative evaluation. Informed Consent: The patient's anesthetic plan and its attendant risks and benefits were discussed with the patient/family/POA. Questions were solicited and answers provided to the satisfaction of the patient/family/POA.
[2025-03-17] MEDS: ceFAZolin 2 GM in SODIUM CHLORIDE 0.9% IV 50 ML 100 ML IVPB ×3 (07:34→23:18)
[2025-03-17] MEDS: SODIUM CHLORIDE 0.9% IV 37.7 ML, MORPHINE SULFATE INJ (*CRX) 2 MG, ROPivacaine HCL 1% 2... INFILTRATE (08:06)
--- NOTE | 2025-03-17 09:49 | P.OP_ITS ---
Procedure Note - Detailed Date of Procedure 03/17/25 Pre-op Diagnosis Left knee degenerative arthritis. Post-op Diagnosis Same Procedure Performed Calipered, kinematically aligned total knee replacement left knee. Surgeon Julien Louis MD Biometrics Head Dora Orr PA-C Anesthesia General Indications Severe valgus knee arthritis. Findings According to the calipered kinematic alignment principles, the knee was balanced by the following verification checks incorporating 6 caliper measurements, using an insert goniometer to select the insert thickness, and adjusting the tibial resection following the kinematic alignment algorithm (see figure 160.10 published in [employer] chapter on kinematic alignment total knee arthroplasty.) The steps verified the femoral and tibial components were kinematically aligned coincident to the patient's pre arthritic joint lines, which closely restored the [place] tibial compartment forces and ligament laxities without ligament release. The [employer] SperiKA knee, designed specifically for kinematic alignment, fit optimally. IT band release performed proximally, extraarticular. Partial PCL release. The record of verification checks were documented and scanned into the chart. Distal Femoral Resection: Distal Lateral 6 mm(cartilage worn), Distal Medial 8.5 mm Target thickness of 8mm Unworn, 6mm Worn (No Cartilage). Posterior Femoral Resection: Posterior Lateral 5 mm(cartilage worn), Posterior Medial 7 mm. Target thickness of 7mm Unworn, 5mm Worn (No Cartilage). Description of Procedure General anesthesia was administered. A well-padded tourniquet was placed high on the thigh. The limb was prepped and draped in the usual sterile fashion. The limb was exsanguinated and the tourniquet inflated to 300 mmHgduring exposur e and cementation. A longitudinal incision was created over the midline of the knee. Sharp dissection was taken through subcutaneous tissues. Electrocautery was used for hemostasis. A trivector approach to the knee joint was performed. The ACL, anterior horns of the menisci, and fat pad were excised, and a subperiosteal dissection was carried along the posterior medial border of the tibia. Starting midway between the top of the notch in the anterior femoral cortex, I drilled a 9 mm diameter hole parallel to the anterior cortex to minimize flexion of the femoral component and promote patella tracking. I verified the existence of a 5-10 mm bone bridge between the posterior aspect of the hole and the anterior limit of the intercondylar notch. An intraosseous positioning toni was inserted 10 cm into the femur perpendicular to the distal joint line and parallel to the anterior cortex. I used a distal femoral referencing guide that compensated 2 mm when the cartilage was worn on the distal medial femoral condyle, and 2 mm when the cartilage was worn on the distal lateral femoral condyle. The basis for setting the distal and posterior femoral resection guide is knowing that the varus and valgus grade II to IV Kellegren-Milton osteoarthritic knees have negligible bone wear at 0? and 90? and that the mean full-thickness cartilage wear approximates 2 mm. I measured the thickness of distal femoral resections with a caliper to +/- 0.5 mm. The thickness of each resection was adjusted to match the thickness of the respective condyle of the femoral component within 0.5 mm of target after compensating for cartilage wear and kerf. When the distal resection was 1-2 mm too thin, a recut guide was used to adjust the cut. When the distal resection was too thick, a 1 or 2 mm thick washer was fixed to the back of the 4-in-1 chamfer block to nik a corrective gap between the femoral component and distal femur. I set posterior femoral referencing guide at 0? orientation to position the pin holes for the 4 in 1 chamfer block. The ely wing measured the width of the distal femoral resection and selected the size of the 4 in 1 chamfer block and femoral component. The AP sizer confirmed the size. I measured the thickness of the posterior femoral resections with a caliper before making the anterior and chamfer cuts. I adjusted the thicknesses of each resection to match the thickness of the respective condyle of the femoral component within +/-0.5 mm after compensating for cartilage wear and curve. When a posterior resection femoral resection was 1-2 mm too thick or thin a corrective correction was made by shifting or rotating the 4 in 1 chamfer block as needed. The chamfer block was secured in the correct position with compression screws. The anterior and c hamfer femoral resections were made. These caliper measurements and corrections verified that the femoral component was set coincident with the patient's pre- arthritic distal and posterior femoral joint lines. I removed all the medial and lateral femoral and tibial osteophytes to restore the pre arthritic length of the medial and lateral collateral ligaments. I jason AP lines along the major axis of the lateral tibial plateau in between the tibial spines which identified the flexion extension plane of the knee. A conventional extramedullary tibial resection guide was applied to the ankle. An ely wing was placed medially in the saw slot. The varus valgus angle of the tibial resection guide was adjusted until the guide paralleled the proximal tibial articular surface after compensating for cartilage and bone wear. The slope of flexion extension angle of the tibial resection guide was adjusted until the ely wing paralleled the slope of the medial tibia after compensating for wear. The AP axis of the tibial resection guide was adjusted parallel to the two lines. The proximal tibia was resected, partially releasing the insertion of the posterior cruciate ligament. The thickness of the medial and lateral lateral tibial condyle was measured at the base of the tibial spines. I visually verified the slope of the medial border of the resection was parallel to the patient's pre arthritic slope after compensating for cartilage and bone wear. I removed the remnants of the posterior horns of the menisci and posterior osteophytes and cauterized the inferior lateral genicular vessels. The Aquamantys bipolar device was also used to for additional hemostasis. When the knee had a preoperative flexion contracture of 20? or more I teased the capsule off the posterior femur with a curved 3 quarter-inch osteotome. I administered the posterior femoral periosteal injection by delivering 10 cc using a 20 gauge spinal needle at the most medial and 10 cc at the most lateral femoral spur surface which reduced the risk of injury to the posterior neurovascular structures. I followed 6 options in a decision tree to fine tune the varus valgus and posterior slope orientation of the tibial component to restore the patient's pre arthritic tibial joint line and limb alignment. First, I adjusted the varus- valgus orientation of the proximal tibia resection working in 1 degree to 2 degree increments until there was negligible medial and lateral lift off of the distal femoral and proximal tibial resection from the spacer block during a varus valgus laxity assessment in extension. I selected the largest anatomic shape trial tibial base plate that fit within the cortical boundary of the proximal tibial resection. The base plate was best fit parallel to the cortical boundary which set the Internal-external orientation of the anterior to posterior and medial to lateral positions. The best fit method set the AP axis of the tibial base plate and insert parallel to the flexion extension plane of the pre arthritic knee. I pinned the trial tibial base plate, prepared the cruciate slot, and fixed the base plate to the tibia with the cruciate stem. I inserted the trial femoral component. The knee was placed in full extension. Varus valgus laxity is of the knee with trial components were assessed. When asymmetric laxity was observed a 1-2 degree varus or valgus recut guide was used to fine tune the tibial resection until the laxity was 1 degree or less in full extension like the [place] knee. The following steps determined the optimal insert thickness within +/-1 mm. First I inserted an insert goniometer that matched the thickness of the spacer block. I reduced the patella and then with the knee in maximum extension, I verified the knee hyperextended a few degrees and had negligible varus valgus laxity, like the pre arthritic knee. Next, I measured the external tibial orientation which was the angle the insert goniometer intersected the sagittal line on the medial condyle of the femoral trial component. Then with the knee in 15-30 degrees flexion I verified a 3-4 mm gap in the lateral compartment and no gap in the medial compartment during a 2nd varus valgus laxity test. Next, I placed the knee in 90? of flexion and the foot resting on the operating table and measured the internal tibial orientation. I repeated the steps until I identified the insert thickness that provided the highest external tibia orientation in extension and the highest internal tibial orientation at 90? flexion without anterior lift-off of the insert from the tibial base plate. The insert with this thickness was implanted. I applied a posterior drawer test with the tibia distracted by gravity and verified no posterior subluxation of the tibia relative to the femur. The thickness of the [place] patella was measured with a caliper. The patella was resected using the oscillating saw. The best fitting anatomic patella button was selected. The fixation holes were drilled. When the patella and patella buttons combined thickness was thicker than the [place] patella, the patella was recut. The patella remained centered on the trochlea and tracked well throughout the entire arc of flexion and extension. There was subtle tightness in the lateral extensor mechanism and retinaculum. The ITB band was taut. A proximal release was performed extra-articularly. I used pulse lavage to clean the bony surfaces of debris and dried bone. I cemented the tibial, femoral, and patellar components using 1 bag of methylmethacrylate with Gentamycin, then rechecked the stability at full extension, 15-30 degrees, and 90? flexion and verified congregational of the entire arc of motion of the knee. The circulating nurse confirmed the sponge and needle counts were correct. I used pulse lavage to rinse the joint and wound. The extensor mechanism was closed with interrupted #1 Vicryl suture and #1 running Stratafix suture. The subcutaneous layer was closed with interrupted #1 Vicryl suture followed by 2-0 Stratafix and 3-0 Stratafix. Steri-Strips placed on the skin. Silver impregnated occlusive dressing applied to the wound. A light gauze wrap and Joon bandage were placed. The patient was transferred to the recovery room in stable condition. There were no complications. Physician family readiness support assistant, Dora Orr PA-C, required for surgery; including patient positioning, draping, tissue retraction, maintaining instrument position, cement removal, wound closure, and dressing placement. Implants Medacta GMK spheriKA Femoral component SpheriKA size 3+, tibial component size 3, vitamin-E flex insert, thickness 11 mm, Anatomic patella implant size 1. Estimated Blood Loss 50 Drains No Pathology None sent Complications No immediate complications Condition Stable Disposition PACU [facility] Billing Surgery - Charge Forward: Surgery Billing
[2025-03-17] MEDS: LACTATED RINGERS 1,000 ML 30 ML IV CONT ×2 (09:51→10:23)
[2025-03-17] MEDS: fentaNYL CITRATE INJ (*CRX) 100 MCG/2 ML VIAL 25 MCG IV PUSH ×4 (10:06→11:09)
[2025-03-17] MEDS: ONDANSETRON INJ 4 MG/2 ML VIAL IV PUSH ×2 (10:44→15:03)
--- NOTE | 2025-03-17 11:35 | PC.NURSE ---
This patient, Kala Duron, was admitted to [facility] Surg Room 301-01. Patient/family oriented to hospital policies and general routines including ID bracelet, bed and alarms, visiting hours, pain management, procedures, bathroom and other care routines, personal items, smoking policy, room service/diet, and visiting hours. Information on how to activate the Rapid Response Team has been discussed. Patient/Family are encouraged to report perceived risks to care and to ask questions if they do not understand what they are told or what they should do.
--- NOTE | 2025-03-17 14:12 | PM.PNORT ---
Progress Note: A&P Assessment and Plan (1) Status post total knee replacement, left: Code(s): Z96.652 - Presence of left artificial knee joint Status: Acute Plan Post op check. Pain well controlled. Good quad activation. Dressing CDI. NVI. Questions answered. PT/OT. Discharge planning. Subjective Subjective Date/Time Seen: 03/17/25 14:12 Objective Data Vital Signs Vital Signs: Vital Signs - 24 hr 03/17/25 07:00 03/17/25 09:51 03/17/25 10:00 Temperature 36.7 C 36.6 C Pulse Rate 78 83 71 Respiratory Rate 16 12 10 L Blood Pressure 138/68 138/74 135/71 Pulse Oximetry 100 97 96 Oxygen Delivery Room Air Simple Face Mask Simple Face Mask Oxygen Flow Rate 8 8 03/17/25 10:15 03/17/25 10:30 03/17/25 10:45 Temperature 36.4 C Pulse Rate 73 73 66 Respiratory Rate 10 L 12 10 L Blood Pressure 116/63 126/66 128/66 Pulse Oximetry 96 97 92 Oxygen Delivery Simple Face Mask Simple Face Mask Nasal Cannula Oxygen Flow Rate 8 8 2 03/17/25 11:00 03/17/25 11:35 03/17/25 11:50 Temperature 36.3 C L Pulse Rate 66 65 64 Respiratory Rate 10 L 16 16 Blood Pressure 127/67 102/73 128/60 Pulse Oximetry 92 96 95 Oxygen Delivery Nasal Cannula Oxygen Flow Rate 2 03/17/25 12:20 03/17/25 13:20 Temperature 36.3 C L 36.2 C L Pulse Rate 63 63 Respiratory Rate 18 16 Blood Pressure 130/65 150/68 H Pulse Oximetry 97 99 Oxygen Delivery Oxygen Flow Rate Intake/Output Intake/Output: Intake & Output 03/14/25 03/15/25 03/16/25 03/17/25 23:59 23:59 23:59 23:59 Intake Total 450 Balance 450 Meds/Results Medications: Active Medications Generic Name Dose Route Start Last Admin Trade Name Freq PRN Reason Stop Dose Admin Acetaminophen 650 mg 03/17/25 12:00 Acetaminophen 325 Mg Tablet PO Q6HR [facility] Atenolol 50 mg 03/18/25 09:00 Atenolol 50 Mg Tablet PO QAM [facility] Cyclobenzaprine HCl 5 mg 03/17/25 11:10 Cyclobenzaprine Hcl 5 Mg Tablet PO Q8H PRN Spasms Diphenhydramine HCl 25 mg 03/17/25 11:10 Diphenhydramine Hcl Inj 50 Mg/Ml Vial IV PUSH Q6H PRN Itching Famotidine 20 mg 03/17/25 21:00 Famotidine 20 Mg Tablet PO Q12HR [facility] Fenofibrate 145 mg 03/18/25 09:00 Fenofibrate 145 Mg Tablet PO QAM [facility] Ferrous Sulfate 325 mg 03/18/25 09:00 Ferrous Sulfate 325 Mg Tablet BY MOUTH DAILY [facility] Hydrocortisone 1 applic 03/18/25 09:00 Hydrocortisone 1% 30 Gm Cream TOPICAL DAILY [facility] Hydromorphone HCl 1 mg 03/17/25 11:10 Hydromorphone Hcl Inj (*Crx) 1 Mg/Ml Syr IV PUSH Q2H PRN Breakthrough Pain Rated 7-10 or NPO Hydromorphone HCl 0.5 mg 03/17/25 11:10 Hydromorphone Hcl Inj (*Crx) 1 Mg/Ml Syr IV PUSH Q2H PRN Breakthrough Pain Rated 4-6 or NPO Cefazolin Sodium 2 gm/ Sodium 50 mls @ 100 mls/hr 03/17/25 15:00 Chloride IVPB 03/18/25 07:29 Q8H [facility] Sodium Chloride 1,000 mls @ 125 mls/hr 03/17/25 11:10 Normal Saline Iv IV CONT 03/17/25 19:09 .Q8H [facility] Magnesium Oxide 200 mg 03/18/25 09:00 Magnesium Oxide 200 Mg Tablet PO DAILY [facility] Miscellaneous Information 1 each 03/17/25 00:[address] Of Application XX 04/16/25 00:00 CLARIFY [facility] Multivitamins/Minerals 1 tab 03/18/25 09:00 Multivitamins /C Lutein (Centrum Silver) Tablet *Bkc PO 04/17/25 08:59 DAILY [facility] Naloxone HCl 0.1 mg 03/17/25 11:10 Naloxone Hcl 0.4 Mg/Ml Vial IV PUSH Q2M PRN Opiate Reversal Ondansetron HCl 4 mg 03/17/25 11:10 Ondansetron Inj 4 Mg/2 Ml Vial IV PUSH Q4H PRN Nausea And Vomiting Oxycodone/Acetaminophen 1 tablet 03/17/25 11:10 Oxycodone/Acetaminophen (*Crx) 5-325 Mg Tablet PO Q4H PRN Pain Rated 4-6 Oxycodone/Acetaminophen 1 tab 03/17/25 11:10 Oxycodone/Acetaminophen (*Crx) 10-325 Mg Tablet PO Q6H PRN Pain Rated 7-10 Polyethylene Glycol 17 gm 03/18/25 09:00 Polyethylene Glycol 3350 17 Gm Powd.Pack PO QAM [facility] Prednisone 5 mg 03/17/25 17:00 Prednisone 5 Mg Tablet PO DAILY@1700 [facility] Rivaroxaban 10 mg 03/17/25 17:00 Rivaroxaban 10 Mg Tablet PO 03/28/25 17:01 DAILY@17 [facility] Ropinirole HCl 1 mg 03/17/25 17:00 Ropinirole Hcl 1 Mg Tablet PO BID [facility] Senna/Docusate Sodium 2 tab 03/17/25 17:00 Senna/Docusate Sodium Tablet PO BID [facility] Tramadol HCl 50 mg 03/17/25 11:10 Tramadol Hcl (*Crx) 50 Mg Tablet PO Q4H PRN Pain Rated 1-3 Vitamin D 25 mcg 03/18/25 09:00 Cholecalciferol (Vitamin D3) 25 Mcg (1,000 Units) Tablet PO DAILY [facility] Radiology Results: ITS Impressions Knee X-Ray 03/17/25 10:43 IMPRESSION: 1. Left total knee arthroplasty, negative for postoperative purposes. Labs Labs: Laboratory Results - last 24 hr 03/17/25 06:30 Blood Type O Positive Antibody Screen Negative
--- NOTE | 2025-03-17 14:20 | PM.PNORT ---
Progress Note: A&P Assessment and Plan (1) Status post total knee replacement, left: Code(s): Z96.652 - Presence of left artificial knee joint Status: Acute Assessment and Plan: Postop day 0: Left total knee arthroplasty. Patient tolerated procedure well. No complications. Pain manageable with pain medication. No numbness or tingling. We had a lengthy discussion regarding postoperative wound care, limitations, expectations, and exercises. Patient shows good understanding. She has had initial physical therapy and is tolerating it well. Plan to review labwork and call the nurse tomorrow morning. If patient is doing well she will be okay for discharge. Patient is pleased with the plan. DVT prophylaxis: Xarelto (history of blood clot). She does have a long drive to her son's house tomorrow. She will pump her feet and get out to walk at least once to decrease risk of blood clot. Pain medication: Percocet. Patient has followup appointment with Dr. Louis in 3 weeks. Subjective Subjective Date/Time Seen: 03/17/25 14:20 Interval history: Patient resting comfortably. No distal numbness or tingling. Notes some nausea. No other complaints. Review of Systems Review of Systems: All systems reviewed & are unremarkable except as noted in HPI and below Exam Narrative: 69-year-old overweight female. Resting comfortably in bed. Alert and oriented x3. No acute distress. Wearing compression socks bilaterally. Dressing dry and intact without drainage. Mild swelling. No ecchymosis. No erythema. No hematoma. Range of motion limited due to pain. Calf nontender. Neurologic status intact. No varicosities. Distal pulses palpable. Objective Data Vital Signs Vital Signs: Vital Signs - 24 hr 03/17/25 07:00 03/17/25 09:51 03/17/25 10:00 Temperature 98.0 F 97.8 F Pulse Rate 78 83 71 Respiratory Rate 16 12 10 L Blood Pressure 138/68 138/74 135/71 Pulse Oximetry 100 97 96 Oxygen Delivery Room Air Simple Face Mask Simple Face Mask Oxygen Flow Rate 8 8 03/17/25 10:15 03/17/25 10:30 03/17/25 10:45 Temperature 97.6 F Pulse Rate 73 73 66 Respiratory Rate 10 L 12 10 L Blood Pressure 116/63 126/66 128/66 Pulse Oximetry 96 97 92 Oxygen Delivery Simple Face Mask Simple Face Mask Nasal Cannula Oxygen Flow Rate 8 8 2 03/17/25 11:00 03/17/25 11:35 03/17/25 11:50 Temperature 97.3 F L Pulse Rate 66 65 64 Respiratory Rate 10 L 16 16 Blood Pressure 127/67 102/73 128/60 Pulse Oximetry 92 96 95 Oxygen Delivery Nasal Cannula Oxygen Flow Rate 2 03/17/25 12:20 03/17/25 13:20 Temperature 97.3 F L 97.2 F L Pulse Rate 63 63 Respiratory Rate 18 16 Blood Pressure 130/65 150/68 H Pulse Oximetry 97 99 Oxygen Delivery Oxygen Flow Rate Intake/Output Intake/Output: Intake & Output 03/14/25 03/15/25 03/16/25 03/17/25 23:59 23:59 23:59 23:59 Intake Total 450 Balance 450 Meds/Results Medications: Active Medications Generic Name Dose Route Start Last Admin Trade Name Freq PRN Reason Stop Dose Admin Acetaminophen 650 mg 03/17/25 12:00 Acetaminophen 325 Mg Tablet PO Q6HR [facility] Atenolol 50 mg 03/18/25 09:00 Atenolol 50 Mg Tablet PO QAM [facility] Cyclobenzaprine HCl 5 mg 03/17/25 11:10 Cyclobenzaprine Hcl 5 Mg Tablet PO Q8H PRN Spasms Diphenhydramine HCl 25 mg 03/17/25 11:10 Diphenhydramine Hcl Inj 50 Mg/Ml Vial IV PUSH Q6H PRN Itching Famotidine 20 mg 03/17/25 21:00 Famotidine 20 Mg Tablet PO Q12HR [facility] Fenofibrate 145 mg 03/18/25 09:00 Fenofibrate 145 Mg Tablet PO QAM [facility] Ferrous Sulfate 325 mg 03/18/25 09:00 Ferrous Sulfate 325 Mg Tablet BY MOUTH DAILY [facility] Hydrocortisone 1 applic 03/18/25 09:00 Hydrocortisone 1% 30 Gm Cream TOPICAL DAILY [facility] Hydromorphone HCl 1 mg 03/17/25 11:10 Hydromorphone Hcl Inj (*Crx) 1 Mg/Ml Syr IV PUSH Q2H PRN Breakthrough Pain Rated 7-10 or NPO Hydromorphone HCl 0.5 mg 03/17/25 11:10 Hydromorphone Hcl Inj (*Crx) 1 Mg/Ml Syr IV PUSH Q2H PRN Breakthrough Pain Rated 4-6 or NPO Cefazolin Sodium 2 gm/ Sodium 50 mls @ 100 mls/hr 03/17/25 15:00 Chloride IVPB 03/18/25 07:29 Q8H [facility] Sodium Chloride 1,000 mls @ 125 mls/hr 03/17/25 11:10 Normal Saline Iv IV CONT 03/17/25 19:09 .Q8H [facility] Magnesium Oxide 200 mg 03/18/25 09:00 Magnesium Oxide 200 Mg Tablet PO DAILY [facility] Miscellaneous Information 1 each 03/17/25 00:[address] Of Application XX 04/16/25 00:00 CLARIFY [facility] Multivitamins/Minerals 1 tab 03/18/25 09:00 Multivitamins /C Lutein (Centrum Silver) Tablet *Bkc PO 04/17/25 08:59 DAILY [facility] Naloxone HCl 0.1 mg 03/17/25 11:10 Naloxone Hcl 0.4 Mg/Ml Vial IV PUSH Q2M PRN Opiate Reversal Ondansetron HCl 4 mg 03/17/25 11:10 Ondansetron Inj 4 Mg/2 Ml Vial IV PUSH Q4H PRN Nausea And Vomiting Oxycodone/Acetaminophen 1 tablet 03/17/25 11:10 Oxycodone/Acetaminophen (*Crx) 5-325 Mg Tablet PO Q4H PRN Pain Rated 4-6 Oxycodone/Acetaminophen 1 tab 03/17/25 11:10 Oxycodone/Acetaminophen (*Crx) 10-325 Mg Tablet PO Q6H PRN Pain Rated 7-10 Polyethylene Glycol 17 gm 03/18/25 09:00 Polyethylene Glycol 3350 17 Gm Powd.Pack PO QAM [facility] Prednisone 5 mg 03/17/25 17:00 Prednisone 5 Mg Tablet PO DAILY@1700 [facility] Rivaroxaban 10 mg 03/17/25 17:00 Rivaroxaban 10 Mg Tablet PO 03/28/25 17:01 DAILY@17 [facility] Ropinirole HCl 1 mg 03/17/25 17:00 Ropinirole Hcl 1 Mg Tablet PO BID [facility] Senna/Docusate Sodium 2 tab 03/17/25 17:00 Senna/Docusate Sodium Tablet PO BID [facility] Tramadol HCl 50 mg 03/17/25 11:10 Tramadol Hcl (*Crx) 50 Mg Tablet PO Q4H PRN Pain Rated 1-3 Vitamin D 25 mcg 03/18/25 09:00 Cholecalciferol (Vitamin D3) 25 Mcg (1,000 Units) Tablet PO DAILY [facility] Radiology Results: ITS Impressions Knee X-Ray 03/17/25 10:43 IMPRESSION: 1. Left total knee arthroplasty, negative for postoperative purposes. Labs Labs: Laboratory Results - last 24 hr 03/17/25 06:30 Blood Type O Positive Antibody Screen Negative
[2025-03-17] MEDS: SODIUM CHLORIDE 0.9% IV 1,000 ML 125 ML IV CONT (16:15)
[2025-03-17] MEDS: SENNA/DOCUSATE SODIUM TABLET 2 TAB PO (17:30)
[2025-03-17] MEDS: ACETAMINOPHEN 325 MG TABLET 650 MG PO ×2 (17:31→23:18)
[2025-03-17] MEDS: RIVAROXABAN 10 MG TABLET PO (17:31)
[2025-03-17] MEDS: FAMOTIDINE 20 MG TABLET PO (21:03)
[2025-03-17] MEDS: oxyCODONE/ACETAMINOPHEN (*CRX) 10-325 MG TABLET 1 TAB PO (21:03)
[2025-03-18] MEDS: HYDROmorphone HCL INJ (*CRX) 1 MG/ML SYR IV PUSH (03:24)
[2025-03-18 04:55] VITALS: BP 122/73; PULSE 77; RESP 18; TEMP 36.6; O2SAT 95
[2025-03-18] MEDS: ACETAMINOPHEN 325 MG TABLET 650 MG PO ×2 (05:30→11:24)
[2025-03-18] MEDS: ceFAZolin 2 GM in SODIUM CHLORIDE 0.9% IV 50 ML 100 ML IVPB (06:03)
[2025-03-18 06:05] LABS: Hematocrit 31.6 % (37.0-47.0); Hemoglobin 10.3 g/dL (12.0-15.0); Immature Granulocyte Percent A 0.4 % (0-0.5); Lymphocytes Absolute Auto 1.16 K/mm3 (0.9-3.2); Mean Corpuscular HGB Conc 32.6 g/dl (32-36); Mean Corpuscular Hemoglobin 31.4 pg (26-34); Mean Corpuscular Volume 96.3 fl (80-100); Nucleated Red Blood Cells Absolute Auto 0.000 K/mm3 (0.0-0.012); Nucleated Red Blood Cells Perc 0.0 % (0.0-0.2); Platelet Count Result 219 k/mm3 (150-375); Red Blood Count 3.28 M/mm3 (4.2-5.4); White Blood Count 8.3 K/mm3 (4.5-10.0)
[2025-03-18 06:22] LABS: Anion Gap 3 mmol/L (4-12); Blood Urea Nitrogen 29 mg/dL (7-17); Calcium 8.5 mg/dL (8.4-10.2); Carbon Dioxide 26 mmol/L (22-30); Chloride 111 mmol/L (98-107); Estimated CRCL calculation 52 ml/min; Estimated Glomerular Filt Rate 57; Glucose 128 mg/dL (65-110); Potassium 4.7 mmol/L (3.4-5.0); Sodium 140 mmol/L (137-145)
[2025-03-18] MEDS: oxyCODONE/ACETAMINOPHEN (*CRX) 10-325 MG TABLET 1 TAB PO ×2 (06:44→12:45)
--- NOTE | 2025-03-18 06:51 | PC.NURSE ---
Patient commented her son will be picking her up from hospital today for discharge she stated,I will have a long 2 hour trip (ride) ahead of me today to [place], [place], where lives for hol.. I educated patient, a two hours drive is discouraged and not recommended and would be against medical advice after post-op day one of knee surgery. Risks from prolonged sitting in car two hour trip can increase risk for DVT's, increased swell to knee, and less than 24 hours post anesthesia side effects can be unsafe. ?Nurse expressed concern and urgently suggested patient to get medical clearance before discharge to talk to physician for recommendations. In shift report with let oncoming nurse aware and need to notify discharging physician about safety and risk concerns.
--- NOTE | 2025-03-18 08:18 | P.PNOP_ITS ---
Progress Note: A&P Assessment and Plan (1) Status post total knee replacement, left: Code(s): Z96.652 - Presence of left artificial knee joint Status: Acute Assessment and Plan: Postop day 1: Left total knee arthroplasty. Spoke with patients nurse, reviewed labs. Patient doing well. She is okay for discharge today. She has a [address] She will elevate her leg, get out and walk every 30 minutes, wear compression socks, and pump her legs during the drive. She is on Xarelto. She is at an increased risk for blood clot because of a previous history of blood clot in the operative leg. DVT prophylaxis: Xarelto (history of blood clot). She does have a long drive to her son's house tomorrow. She will pump her feet and get out to walk at least once to decrease risk of blood clot. Pain medication: Percocet. Patient has followup appointment with Dr. Louis in 3 weeks. Subjective Subjective Date/Time Seen: 03/18/25 08:18 Interval history: Spoke with patient's nurse. Patient doing well. She has no complaints. Objective Data Vital Signs Vital Signs: Vital Signs - 24 hr 03/17/25 09:51 03/17/25 10:00 03/17/25 10:15 Temperature 97.8 F Pulse Rate 83 71 73 Respiratory Rate 12 10 L 10 L Blood Pressure 138/74 135/71 116/63 Pulse Oximetry 97 96 96 Oxygen Delivery Simple Face Mask Simple Face Mask Simple Face Mask Oxygen Flow Rate 8 8 8 Fraction of Inspired Oxygen 03/17/25 10:30 03/17/25 10:45 03/17/25 11:00 Temperature 97.6 F Pulse Rate 73 66 66 Respiratory Rate 12 10 L 10 L Blood Pressure 126/66 128/66 127/67 Pulse Oximetry 97 92 92 Oxygen Delivery Simple Face Mask Nasal Cannula Nasal Cannula Oxygen Flow Rate 8 2 2 Fraction of Inspired Oxygen 03/17/25 11:35 03/17/25 11:50 03/17/25 12:20 Temperature 97.3 F L 97.3 F L Pulse Rate 65 64 63 Respiratory Rate 16 16 18 Blood Pressure 102/73 128/60 130/65 Pulse Oximetry 96 95 97 Oxygen Delivery Oxygen Flow Rate Fraction of Inspired Oxygen 03/17/25 13:20 03/17/25 14:01 03/17/25 15:05 Temperature 97.2 F L Pulse Rate 63 Respiratory Rate 16 Blood Pressure 150/68 H Pulse Oximetry 99 Oxygen Delivery Room Air Room Air Oxygen Flow Rate Fraction of Inspired Oxygen 03/17/25 15:47 03/17/25 16:50 03/17/25 19:56 Temperature 97.5 F L 96.8 F L Pulse Rate 66 73 72 Respiratory Rate 16 16 Blood Pressure 147/74 H 128/69 Pulse Oximetry 96 100 99 Oxygen Delivery Room Air Oxygen Flow Rate Fraction of Inspired Oxygen 21 03/17/25 21:03 03/17/25 23:18 03/18/25 04:55 Temperature 97.6 F 97.8 F Pulse Rate 77 77 Respiratory Rate 18 18 Blood Pressure 137/72 122/73 Pulse Oximetry 96 95 Oxygen Delivery Room Air Oxygen Flow Rate Fraction of Inspired Oxygen Intake/Output Intake/Output: Intake & Output 03/15/25 03/16/25 03/17/25 03/18/25 23:59 23:59 23:59 23:59 Intake Total 790 50 Balance 790 50 Meds/Results Medications: Active Medications Generic Name Dose Route Start Last Admin Trade Name Freq PRN Reason Stop Dose Admin Acetaminophen 650 mg 03/17/25 12:00 03/18/25 05:30 Acetaminophen 325 Mg Tablet PO 650 mg Q6HR [facility] Administration Atenolol 50 mg 03/18/25 09:00 Atenolol 50 Mg Tablet PO QAM [facility] Cyclobenzaprine HCl 5 mg 03/17/25 11:10 Cyclobenzaprine Hcl 5 Mg Tablet PO Q8H PRN Spasms Diphenhydramine HCl 25 mg 03/17/25 11:10 Diphenhydramine Hcl Inj 50 Mg/Ml Vial IV PUSH Q6H PRN Itching Famotidine 20 mg 03/17/25 21:00 03/17/25 21:03 Famotidine 20 Mg Tablet PO 20 mg Q12HR [facility] Administration Fenofibrate 145 mg 03/18/25 09:00 Fenofibrate 145 Mg Tablet PO QAM [facility] Ferrous Sulfate 325 mg 03/18/25 09:00 Ferrous Sulfate 325 Mg Tablet BY MOUTH DAILY [facility] Hydrocortisone 1 applic 03/18/25 09:00 Hydrocortisone 1% 30 Gm Cream TOPICAL DAILY [facility] Hydromorphone HCl 1 mg 03/17/25 11:10 03/18/25 03:24 Hydromorphone Hcl Inj (*Crx) 1 Mg/Ml Syr IV PUSH 1 mg Q2H PRN Administration Breakthrough Pain Rated 7-10 or NPO Hydromorphone HCl 0.5 mg 03/17/25 11:10 Hydromorphone Hcl Inj (*Crx) 1 Mg/Ml Syr IV PUSH Q2H PRN Breakthrough Pain Rated 4-6 or NPO Magnesium Oxide 200 mg 03/18/25 09:00 Magnesium Oxide 200 Mg Tablet PO DAILY [facility] Miscellaneous Information 1 each 03/17/25 00:[address] Of Application XX 04/16/25 00:00 CLARIFY [facility] Multivitamins/Minerals 1 tab 03/18/25 09:00 Multivitamins /C Lutein (Centrum Silver) Tablet *Bkc PO 04/17/25 08:59 DAILY [facility] Naloxone HCl 0.1 mg 03/17/25 11:10 Naloxone Hcl 0.4 Mg/Ml Vial IV PUSH Q2M PRN Opiate Reversal Ondansetron HCl 4 mg 03/17/25 11:10 03/17/25 15:03 Ondansetron Inj 4 Mg/2 Ml Vial IV PUSH 4 mg Q4H PRN Administration Nausea And Vomiting Oxycodone/Acetaminophen 1 tablet 03/17/25 11:10 Oxycodone/Acetaminophen (*Crx) 5-325 Mg Tablet PO Q4H PRN Pain Rated 4-6 Oxycodone/Acetaminophen 1 tab 03/17/25 11:10 03/18/25 06:44 Oxycodone/Acetaminophen (*Crx) 10-325 Mg Tablet PO 1 tab Q6H PRN Administration Pain Rated 7-10 Polyethylene Glycol 17 gm 03/18/25 09:00 Polyethylene Glycol 3350 17 Gm Powd.Pack PO QAM [facility] Prednisone 5 mg 03/17/25 17:00 03/17/25 17:30 Prednisone 5 Mg Tablet PO 5 mg DAILY@1700 [facility] Administration Rivaroxaban 10 mg 03/17/25 17:00 03/17/25 17:31 Rivaroxaban 10 Mg Tablet PO 03/28/25 17:01 10 mg DAILY@17 [facility] Administration Ropinirole HCl 1 mg 03/17/25 17:00 03/17/25 17:31 Ropinirole Hcl 1 Mg Tablet PO 1 mg BID [facility] Administration Senna/Docusate Sodium 2 tab 03/17/25 17:00 03/17/25 17:30 Senna/Docusate Sodium Tablet PO 2 tab BID [facility] Administration Tramadol HCl 50 mg 03/17/25 11:10 Tramadol Hcl (*Crx) 50 Mg Tablet PO Q4H PRN Pain Rated 1-3 Vitamin D 25 mcg 03/18/25 09:00 Cholecalciferol (Vitamin D3) 25 Mcg (1,000 Units) Tablet PO DAILY [facility] Radiology Results: ITS Impressions Knee X-Ray 03/17/25 10:43 IMPRESSION: 1. Left total knee arthroplasty, negative for postoperative purposes. Labs Labs: Laboratory Results - last 24 hr 03/18/25 05:16 WBC 8.3 RBC 3.28 L Hgb 10.3 L Hct 31.6 L MCV 96.3 MCH 31.4 MCHC 32.6 RDW 14.0 Plt Count 219 MPV 10.3 Immature Gran % (Auto) 0.4 Neut % (Auto) 75.6 H Lymph % (Auto) 14.0 L [place] % (Auto) 8.2 Eos % (Auto) 1.4 Baso % (Auto) 0.4 Lymph # (Auto) 1.16 [place] # (Auto) 0.7 H Eos # (Auto) 0.1 Baso # (Auto) 0.0 Abs Immat Gran (auto) 0.03 Absolute Neuts (auto) 6.3 Absolute Nucleated RBC 0.000 Nucleated RBC % 0.0 Sodium 140 Potassium 4.7 Chloride 111 H Carbon Dioxide 26 Anion Gap 3 L BUN 29 H Creatinine 0.96 Estim Creat Clear Calc 52 Estimated GFR 57 L Glucose 128 H Calcium 8.5
[2025-03-18 08:37] VITALS: PULSE 77
[2025-03-18] MEDS: FENOFIBRATE 145 MG TABLET PO (08:37)
[2025-03-18] MEDS: FAMOTIDINE 20 MG TABLET PO (08:37)
[2025-03-18] MEDS: FERROUS SULFATE 325 MG TABLET BY MOUTH (08:37)
[2025-03-18] MEDS: MULTIVITAMINS /C LUTEIN (CENTRUM SILVER) TABLET *BKC 1 TAB PO (08:37)
[2025-03-18] MEDS: CHOLECALCIFEROL (VITAMIN D3) 25 MCG (1,000 UNITS) TABLET PO (08:37)
[2025-03-18] MEDS: MAGNESIUM OXIDE 200 MG TABLET PO (08:38)
[2025-03-18 08:46] VITALS: BP 155/68; PULSE 89; RESP 16; TEMP 36.7; O2SAT 97
[2025-03-18] MEDS: traMADol HCL (*CRX) 50 MG TABLET PO (11:24)
[2025-03-18 12:12] VITALS: BP 162/79; PULSE 75; RESP 16; TEMP 36.1; O2SAT 99
== END 2025-03-18 13:40 | disposition home or self-care (01) ==
LOC: ANHSURGERY 10:20 → ANH3MEDSUR 11:13
PROVIDERS: Physician Assistant Surgical; PCP Nurse Practitioner Adult Health; Visit Provider Orthopaedic Surgery
PROC: (CPT 27447; principal; 2025-03-17 07:30)
DX: M17.12 Unilateral primary osteoarthritis, left knee (principal); Z96.651 Presence of right artificial knee joint; I10 Essential (primary) hypertension; M81.0 Age-related osteoporosis without current pathological fracture
CPT/HCPCS: 27447; 36415; 73560; 80048; 85025; 86850; 86900; 86901; 97110; 97161; 97166; 97530; 97535; C1776; J0690; A9270; C1713; J0166; J1171; J1885; J2250; J2270; J2371; J2405; J2704; J2795; J3010; J3290; J7030; J7120; J7512